=== PATIENT | female | born 1985 | race Caucasian/White ===

== ENCOUNTER 2021-03-30 14:24 | Emergency (ER) | payer MEDICAID, SELFPAY ==
[2021-03-30 15:10] VITALS: BP 132/81; PULSE 96; RESP 20; TEMP 36.3; O2SAT 98; BMI 32.5
--- NOTE | 2021-03-30 17:17 | PC.NURSE ---
Pt amb to [facility] with steasdy gaitt. C/o increased anxiety. In sherif. No SI/HI. MEDS prozac, prazosin, hydroxizine, gabapentin, methadone, VITAMIN B1, FLOVENT.
--- NOTE | 2021-03-30 17:35 | ED.ANXIETY ---
HPI - Anxiety General Chief Complaint: Anxiety Stated Complaint: anxiety - shaky Time Seen by Provider: 03/30/21 17:32 Source: patient Mode of arrival: ambulatory Limitations: no limitations History of Present Illness HPI narrative: Patient presents to ED for severe anxiety. Patient states she is on Prozac and Atarax and is not helping. Patient states her boyfriend last month and anxiety has been increased. Patient states she has been struggling to control anxiety for years and seen and no medication works. Patient denies any suicidal or homicidal ideation. Patient denies any auditory/visual hallucinations Related Data Allergies Allergy/AdvReac Type Severity Reaction Status Date / Time No Known Allergies Allergy Verified 03/30/21 19:54 Review of Systems Review of Systems: Yes all other systems are reviewed and are negative Constitutional: Constitutional: Reports as per HPI and Reports no additional constitutional complaints Eyes: Eyes: Reports as per HPI and Reports no additional eye complaints ENT: Reports system reviewed and no additional complaints, except as documented and Reports as per HPI Cardiovascular: Cardiovascular: Reports as per HPI and Reports painful fingertips Respiratory: Respiratory: Reports as per HPI and Reports no additional respiratory complaints Gastrointestinal: Gastrointestinal: Reports as per HPI and Reports no additional gastrointestinal complaints Genitourinary: Genitourinary: Reports no additional female genitourinary complaints and Reports as per HPI Musculoskeletal: Musculoskeletal: Reports no additional musculoskeletal complaints and Reports as per HPI Integumentary/Breasts: Skin/Breast: Reports system reviewed and no additional complaints, except as docu and Reports as per HPI Neurologic: Reports system reviewed and no additional complaints, except as documented and Reports as per HPI Psychiatric: Psychiatric: Reports no additional psychiatric complaints, Reports as per HPI and Reports anxiety [facility] Past Medical History Medical History (Updated 03/30/21 @ 20:07 by JV Anderson) Anemia Anxiety Asthma Gastritis SVT (supraventricular tachycardia) Surgical History (Updated 03/30/21 @ 15:14 by Virginia Renner) Hx of cholecystectomy Social History Social History Advance Directives: No Advance Directives Information Provided: No Physical Exam Vital Signs: Vital Signs: Last Vital Signs Temp 97.4 F 03/30/21 15:10 Pulse 96 03/30/21 15:10 Resp 20 03/30/21 15:10 BP 132/81 03/30/21 15:10 Pulse Ox 98 03/30/21 15:10 Body Mass Index 32.5 Const: General: cooperative, healthy appearing, comfortable, no acute distress, well developed, alert, awake and Physically active Orientation/consciousness: patient oriented x3 HENMT: Other: Patient appears anxious Head: Yes normal to inspection, Yes No palpable skull fracture present, Yes normocephalic and Yes atraumatic Eyes: General: appearance normal, both eyes and all related structures Neck: Neck: Yes normal visual inspection, Yes full ROM, Yes no lymphadenopathy, Yes no meningeal signs, Yes trachea midline, Yes supple and No tender Chest: Chest palpation & inspection: normal inspection of the chest and normal palpation of entire chest wall Resp: Effort & Inspection: normal respiratory effort and able to speak in complete sentences Auscultation: clear to auscultation bilaterally Cardio: Jugular venous distension: no JVD Heart sounds: S1 normal heart sound present and S2 normal heart sound present GI: Inspection: Yes normal to inspection and No abdominal wall ecchymosis Palpation (GI): Soft to palpation, not firm, nontender, no guarding and not rigid : General: No CVA tenderness and Yes no CVA tenderness Back/Spine/Pelvis: Back: no CVA tenderness, No CVA tenderness and No back tenderness Skin: General skin exam: no rashes or lesions noted and elasticity normal Neuro: General: patient oriented x3, gait normal, no meningeal signs and CN's II-XI intact bilaterally Cranial nerves: Yes CN's II-XII intact bilaterally Extrem: General: Yes normal to inspection and Yes full ROM Psych: Other: Anxiety Appearance: grossly normal, well kempt and not disheveled Course Course Course Narrative: No medical intervention needed. Patient is anxious. Not suspecting any cardiac or pulmonary etiology. Will contact care team to evaluate patient Reevaluation(s) Reevaluation #1: Patient evaluated by care team consulted Gayla who recommends patient received full evaluation by crisis and if they do not come she will complete evaluation of patient. Does states patient is really anxious. Time: 19:23 Reevaluation #2: Patient does not want to wait for evaluation by [facility] evaluation. Patient is not suicidal or homicidal. Patient states she has to be with her daughter who needs her help. Patient informed to return to the ED if anxiety worsens or have SI or homicidal ideation. Patient given contact information of [facility] so she could be evaluated in the community. Time: 20:04 Discharge Plan Discharge Clinical Impression: Acute anxiety Patient Disposition: Home, Self-Care Instructions: Anxiety (ED) Additional Instructions: Return to the ED for any suicidal/homicidal ideation, worsening anxiety, chest pain, shortness of breath, auditory/visual hallucinations, or any other concerning symptoms. [facility]errals[facility] - 2 days (Severe anxiety) Stand Alone Forms: Work/School Release Interventions: ED Discharge Assessment Last Done: 03/30/21 20:29 Discharge Date/Time: 03/30/21 20:30 Print Language: Ukrainian
--- NOTE | 2021-03-30 19:34 | MHC.RECOVSUP ---
? Reason for consult:Recovery Resources o?? Current location [facility]? o?? Identified substance use concern Alcohol/Cocaine ?? Support ? Intervention: o?? Community resources provided o?? Harm reduction discussion ? Plan: o?? Follow up tomorrow? o?? Patient awaiting crisis evaluation o?? Patient to follow up with [facility] after discharge ? Additional information: Spoke to Pt. about resources gave her info about [facility].Pt. is interested in having a [employer] Model[employer].Will put in the referral with outpatient at [facility]. ?
--- NOTE | 2021-03-30 20:08 | MHC.CARE ---
CARE team support requested by ED provider for pt who presented to ED endorsing worsening symptoms of anxiety marked by racing thoughts, restlessness, sleep disturbance with nightmares, and appetite disturbance. She denied SI/SIB/HI/AVH. She reported a history of one suicide attempt via medication overdose 9 months ago followed by a psychiatric admission. Denied other history of acute mental health treatment. She reported that she has had a difficult time over the past month, citing the of an ex boyfriend whom she had still been close to, managing medical problems, and transferring to different recovery treatment programs. She reported that every day feels like a constant anxiety attack and her medications haven't been helpful anymore. She relocated to [place] from [place] one year ago with the goal of getting into recovery from alcohol dependence. She has not yet been connected with outpatient behavioral health providers since moving to this area from [facility]. She is attending daily groups and weekly meetings and overall feels that she is doing well with her recovery thus far. She is on methadone through [facility] in [place] and is actively tapering down 2mg per week so she can stop taking it entirely. She was receptive to receiving a full crisis evaluation, however did not wish to wait in the ED for a clinician. She was given [facility] crisis information and discharged home.
--- NOTE | 2021-03-30 20:28 | PC.NURSE ---
PT WAS REEVALED BY PROVIDER. PT DOES NOT WANT TO WAIT FOR [facility] CONSULT. PT DENIES SI/HI.
== END 2021-03-30 20:30 | disposition home or self-care (01) ==
PROVIDERS: Emergency Provider Emergency Medicine; PCP Internal Medicine
DX: F41.9 Anxiety disorder, unspecified (principal); J45.909 Unspecified asthma, uncomplicated; Z79.899 Other long term (current) drug therapy
CPT/HCPCS: 99283

== ENCOUNTER 2021-04-28 08:50 | Emergency (ER) | payer MEDICAID, SELFPAY ==
[2021-04-28] VITALS (7 sets, daily range): BP systolic 116–132; BP diastolic 81–85; PULSE 97–129; RESP 18–21; TEMP 37.2–38.1; O2SAT 95–97; BMI 35.0
--- NOTE | 2021-04-28 | ECG_ITS ---
Test Reason : rapid HR Blood Pressure : / mmHG Vent. Rate : 120 BPM Atrial Rate : 120 BPM P-R Int : 126 ms QRS Dur : 078 ms QT Int : 320 ms P-R-T Axes : 028 063 -14 degrees QTc Int : [address] & T wave abnormality, consider anterior ischemia Abnormal ECG No previous ECGs available Referred By: Kingsley Beal Electronically Signed By:SEBASTIAN SANDERSON MD
--- NOTE | ~2021-04-28 | XR_ITS ---
EXAMINATION: XR CHEST CLINICAL INFORMATION: Cough COMPARISON: None TECHNIQUE: Frontal view of the chest was obtained. FINDINGS: There are low lung volumes. Mild elevation right diaphragm. The lungs are clear. The vascularity is normal. There is no airspace consolidation or groundglass opacity or effusion. The heart is normal in size and the hilar and mediastinal contours are normal. Bony structures are unremarkable. There are probable bilateral nipple piercings and a metallic clip from patient's gown overlying the chest. XR/XR chest 1V IMPRESSION: Unremarkable examination.
--- NOTE | ~2021-04-28 | CT_ITS ---
EXAMINATION: CT ANGIOGRAM OF THE CHEST WITH AND WITHOUT CONTRAST (CT PULMONARY ANGIOGRAM FOR PE) CLINICAL INFORMATION: Reason for Exam Short of breath, tachycardic, positive D-dimer COMPARISON: Chest x-ray from earlier the same day TECHNIQUE: Prior to contrast administration, noncontrast localization images were obtained. Subsequently, multidetector volumetric imaging was performed from the thoracic inlet to below the diaphragms following the administration of 65 mL Omnipaque 350 intravenous contrast. No contrast reaction reported Sagittal, coronal, and MIP oblique sagittal reformatted images were obtained on the CT workstation, uploaded to PACS, and reviewed. This CT examination was performed using dose optimization techniques as appropriate, variously including the following: *Automated exposure control *Adjustment of mA and/or kV according to patient size (this includes techniques or standardized protocols for targeted exams where dose is matched to indication/reason for exam; i.e. extremities or head) *Use of iterative reconstruction technique Total exam dose-length product 302 mGy-cm FINDINGS: QUALITY OF STUDY/CONTRAST BOLUS: Satisfactory. PULMONARY ARTERIES: There is no evidence of a large or central pulmonary embolism. Evaluation of smaller segmental and subsegmental pulmonary arteries is significantly limited due to motion artifact. THORACIC AORTA: No aneurysm or dissection. LUNG: Limited due to motion artifact. No focal consolidation, nodules or masses. PLEURA: No pleural effusion or pneumothorax. MEDIASTINUM: Normal heart size. No pericardial effusion. There is low-attenuation soft tissue is seen in the anterior superior mediastinum questionable for residual thymic tissue. No hilar or mediastinal lymphadenopathy. No evidence of septal bowing or right heart strain. There is an esophageal hernia and wall thickening of the distal thoracic esophagus. CHEST WALL/AXILLA: No axillary or internal mammary lymphadenopathy. OSSEOUS STRUCTURES: No acute or suspicious osseous abnormality. UPPER ABDOMEN: Unremarkable. No reflux of contrast into the hepatic veins to suggest elevated right heart pressures. CT/CT angio chest PE protocol IMPRESSION: Very limited exam due to respiratory motion artifact. No evidence of large or central pulmonary embolism. Evaluation of smaller segmental and subsegmental pulmonary arteries is significantly limited due to motion artifact. Esophageal hernia and wall thickening of the distal thoracic esophagus. Follow-up endoscopy or fluoroscopy exam should be considered if clinically indicated. Probable residual thymic tissue in the anterior superior mediastinum. VTE: negative
[2021-04-28] MEDS: Acetaminophen 325 MG TABLET 650 MG PO ×2 (09:20→16:51)
[2021-04-28 09:24] LABS: Appearance Urine HAZY; Color Urine YELLOW; Glucose Urine UA NEG (NEG); Leukocyte Esterase Urine NEG (NEG); Nitrite Urine NEG (NEG); Urine Blood NEG (NEG); Urine Ketones NEG (NEG); Urine Protein NEG (NEG-TRACE)
[2021-04-28 09:26] LABS: UPreg QC Valid YES; Urine Pregnancy NEGATIVE (NEGATIVE)
[2021-04-28 10:08] LABS: Influenza A PCR NEGATIVE (Negative); Influenza B PCR NEGATIVE (Negative); Resp Syncy Virus RNA Qual PCR NEGATIVE (Negative); SARS COV2 PCR INHOUSE NEGATIVE (Negative)
--- NOTE | 2021-04-28 10:19 | PC.NURSE ---
PT ALERTED THIS RN THAT SHE IS FEELING ANXIOUS AND FEELS LIKE SHE IS GOING INTO SVT. HR ON MONITOR IS 130. EKG ORDERED AND IV ESTABLISHED.
--- NOTE | 2021-04-28 10:35 | ED.GENADULT ---
HPI - General Adult General Chief complaint: General Medical Stated complaint: diff breathing, body ache, headache Time Seen by Provider: 04/28/21 10:15 History of Present Illness HPI narrative: Patient complains of 1 day of body aches, she did have some vomiting earlier but that has resolved, and feeling very short of breath as well as coughing She denies chest pain she denies leg swelling she has no significant headache no stiff neck Patient was discharged several weeks ago from [facility] where she was treated briefly with IV antibiotics for a question of sepsis without a known source Related Data Previous Rx's Medication Instructions Recorded acetaminophen 500 mg tablet 1,000 mg PO QID PRN #20 tab 04/28/21 ibuprofen 600 mg tablet 600 mg PO Q6H PRN #20 tab 04/28/21 lorazepam 0.5 mg tablet (Ativan) 0.5 mg PO TID PRN #7 tab 04/28/21 Allergies Allergy/AdvReac Type Severity Reaction Status Date / Time No Known Allergies Allergy Verified 03/30/21 19:54 Review of Systems Review of Systems: Negatives are no headache no neck pain no chest pain no abdominal pain no diarrhea on no leg swelling no leg pain no skin rash no numbness no weakness no confusion Yes all other systems are reviewed and are negative PMFSH Past Medical History Source: nursing notes reviewed Medical History (Updated 04/28/21 @ 17:29 by JV Esparza) Anemia Anxiety Asthma Gastritis SVT (supraventricular tachycardia) Surgical History (Updated 03/30/21 @ 15:14 by Virginia Renner) Hx of cholecystectomy Social History Social History Advance Directives: No Advance Directives Information Provided: No Patient : No Physical Exam Vital Signs: Vital Signs: Last Vital Signs Temp 98.9 F 04/28/21 16:45 Pulse 97 04/28/21 16:45 Resp 19 04/28/21 16:45 BP 116/85 04/28/21 12:08 Pulse Ox 97 04/28/21 16:45 Body Mass Index 35.0 Temp of a 100.6 degrees is noted as well as a pulse of 129, blood pressure was normal General appearance is no distress but very anxious appearing, no evidence of any respiratory distress The eyes no redness or discharge The nose no sinus tenderness The pharynx is clear and well hydrated The chest is clear to auscultation bilateral with symmetric equal breath sounds Heart no murmur Abdomen soft nontender Extremities full range of motion x4 Neuro no focal motor sensory deficit, gait and balance are normal, speech and interaction comprehension and expression are normal, pupils equal round reactive to light extraocular motions intact cranial nerves intact as tested Course Course Course Narrative: Patients tachycardia was noted and the patient stated she was very anxious and the tachycardia and anxious feeling were relieved after Ativan EKG showed sinus tachycardia with some ST and T-wave abnormalities this was compared with EKG done a few months ago from [facility] and was the same showing a T-wave inversion in V3 same as prior with no other significant changes D-dimer was 567 so CTA was done which was negative with no evidence of pneumonia or blood clot COVID testing was negative, lactic acid was normal, white count was 11 Sepsis considered unlikely as patient had very good response to Ativan with improvement in vital signs and her shortness of best resolved and was very comfortable At completion evaluation patient was comfortable tolerating p.o. ambulating easily and was discharged Medical Decision Making Lab Data Lab results reviewed: Yes I reviewed the patient's lab results. Result diagrams: 04/28/21 10:31 04/28/21 10:31 Labs: Lab Results 04/28/21 04/28/21 04/28/21 Range/Units 09:15 09:15 09:15 WBC (4.8-10.8) X10*3/uL RBC (4.20-5.50) X10*6/uL Hgb (12.0-16.0) g/dl Hct (37.0-47.0) % MCV (80.0-98.0) fL MCH (27.0-33.0) pg MCHC (31.0-35.0) g/dl RDW (11.0-16.0) % Plt Count (160-400) X10*3/uL MPV (9.4-12.3) fL Immature Gran % (Auto) (0.0-0.4) % Neut % (Auto) (45-73) % Lymph % (Auto) (20-40) % Sully % (Auto) (2-11) % Eos % (Auto) (0-4) % Baso % (Auto) (0-2) % Lymph # (Auto) (1.2-4.9) X10*3/uL Sully # (Auto) (0.1-1.2) X10*3/uL Eos # (Auto) (0.0-0.4) X10*3/uL Baso # (Auto) (0.0-0.2) X10*3/uL Abs Immat Gran (auto) (0.00-0.03) X10*3/uL Absolute Neuts (auto) (2.0-8.3) x10*3/uL Absolute Nucleated RBC (0.0-0.012) X10*3/uL Nucleated RBC % (auto) (0.0-0.2) /100WBC D-Dimer NG/ML Sodium (135-145) mmol/L Potassium (3.3-5.1) mmol/L Chloride (96-108) mmol/L Carbon Dioxide (22-29) mmol/L Anion Gap (12-20) BUN (9-16) mg/dL Creatinine (0.5-1.4) mg/dL Estim Creat Clear Calc Estimated GFR POC Glucose (60-115) mg/dL Random Glucose (60-115) mg/dL Lactic Acid (0.5-2.0) mmol/L Calcium (8.4-10.2) mg/dL Urine Color YELLOW Urine Appearance HAZY Urine pH 6.0 (5.0-8.0) Ur Specific [place] 1.020 (1.005-1.025) Urine Protein NEG (NEG-TRACE) MG/DL Urine Glucose (UA) NEG (NEG) MG/DL Urine Ketones NEG (NEG) MG/DL Urine Blood NEG (NEG) Urine Nitrite NEG (NEG) Ur Leukocyte Esterase NEG (NEG) Urine Test NEGATIVE (NEGATIVE) Influenza Type A (PCR) NEGATIVE (Negative) Influenza Type B (PCR) NEGATIVE (Negative) RSV RNA Qual (PCR) NEGATIVE (Negative) SARS-CoV-2 RNA (RT-PCR) NEGATIVE (Negative) 04/28/21 04/28/21 04/28/21 Range/Units 10:30 10:31 10:31 WBC 11.0 H (4.8-10.8) X10*3/uL RBC 4.64 (4.20-5.50) X10*6/uL Hgb 13.1 (12.0-16.0) g/dl Hct 39.1 (37.0-47.0) % MCV 84.3 (80.0-98.0) fL MCH 28.2 (27.0-33.0) pg MCHC 33.5 (31.0-35.0) g/dl RDW 12.1 (11.0-16.0) % Plt Count 175 (160-400) X10*3/uL MPV 8.8 L (9.4-12.3) fL Immature Gran % (Auto) 0.3 (0.0-0.4) % Neut % (Auto) 83.3 H (45-73) % Lymph % (Auto) 9.9 L (20-40) % Sully % (Auto) 5.8 (2-11) % Eos % (Auto) 0.6 (0-4) % Baso % (Auto) 0.1 (0-2) % Lymph # (Auto) 1.1 L (1.2-4.9) X10*3/uL Sully # (Auto) 0.6 (0.1-1.2) X10*3/uL Eos # (Auto) 0.1 (0.0-0.4) X10*3/uL Baso # (Auto) 0.0 (0.0-0.2) X10*3/uL Abs Immat Gran (auto) 0.03 (0.00-0.03) X10*3/uL Absolute Neuts (auto) 9.1 H (2.0-8.3) x10*3/uL Absolute Nucleated RBC 0.000 (0.0-0.012) X10*3/uL Nucleated RBC % (auto) 0.0 (0.0-0.2) /100WBC D-Dimer 574 NG/ML Sodium 137 (135-145) mmol/L Potassium 4.0 (3.3-5.1) mmol/L Chloride 104 (96-108) mmol/L Carbon Dioxide 25 (22-29) mmol/L Anion Gap 12 (12-20) BUN 12 (9-16) mg/dL Creatinine 0.92 (0.5-1.4) mg/dL Estim Creat Clear Calc 92.5 Estimated GFR > 60 POC Glucose (60-115) mg/dL Random Glucose 56 L* (60-115) mg/dL Lactic Acid (0.5-2.0) mmol/L Calcium 8.5 (8.4-10.2) mg/dL Urine Color Urine Appearance Urine pH (5.0-8.0) Ur Specific [place] (1.005-1.025) Urine Protein (NEG-TRACE) MG/DL Urine Glucose (UA) (NEG) MG/DL Urine Ketones (NEG) MG/DL Urine Blood (NEG) Urine Nitrite (NEG) Ur Leukocyte Esterase (NEG) Urine Test (NEGATIVE) Influenza Type A (PCR) (Negative) Influenza Type B (PCR) (Negative) RSV RNA Qual (PCR) (Negative) SARS-CoV-2 RNA (RT-PCR) (Negative) 04/28/21 04/28/21 Range/Units 11:12 11:23 WBC (4.8-10.8) X10*3/uL RBC (4.20-5.50) X10*6/uL Hgb (12.0-16.0) g/dl Hct (37.0-47.0) % MCV (80.0-98.0) fL MCH (27.0-33.0) pg MCHC (31.0-35.0) g/dl RDW (11.0-16.0) % Plt Count (160-400) X10*3/uL MPV (9.4-12.3) fL Immature Gran % (Auto) (0.0-0.4) % Neut % (Auto) (45-73) % Lymph % (Auto) (20-40) % Sully % (Auto) (2-11) % Eos % (Auto) (0-4) % Baso % (Auto) (0-2) % Lymph # (Auto) (1.2-4.9) X10*3/uL Sully # (Auto) (0.1-1.2) X10*3/uL Eos # (Auto) (0.0-0.4) X10*3/uL Baso # (Auto) (0.0-0.2) X10*3/uL Abs Immat Gran (auto) (0.00-0.03) X10*3/uL Absolute Neuts (auto) (2.0-8.3) x10*3/uL Absolute Nucleated RBC (0.0-0.012) X10*3/uL Nucleated RBC % (auto) (0.0-0.2) /100WBC D-Dimer NG/ML Sodium (135-145) mmol/L Potassium (3.3-5.1) mmol/L Chloride (96-108) mmol/L Carbon Dioxide (22-29) mmol/L Anion Gap (12-20) BUN (9-16) mg/dL Creatinine (0.5-1.4) mg/dL Estim Creat Clear Calc Estimated GFR POC Glucose 102 (60-115) mg/dL Random Glucose (60-115) mg/dL Lactic Acid 1.0 (0.5-2.0) mmol/L Calcium (8.4-10.2) mg/dL Urine Color Urine Appearance Urine pH (5.0-8.0) Ur Specific [place] (1.005-1.025) Urine Protein (NEG-TRACE) MG/DL Urine Glucose (UA) (NEG) MG/DL Urine Ketones (NEG) MG/DL Urine Blood (NEG) Urine Nitrite (NEG) Ur Leukocyte Esterase (NEG) Urine Test (NEGATIVE) Influenza Type A (PCR) (Negative) Influenza Type B (PCR) (Negative) RSV RNA Qual (PCR) (Negative) SARS-CoV-2 RNA (RT-PCR) (Negative) Discharge Plan Discharge Clinical Impression: Acute viral syndrome Patient Disposition: Home, Self-Care Additional Instructions: Our testing today did not reveal any dangerous condition A CT was done that did not show any blood clot did not show any pneumonia COVID testing was negative Blood work did not reveal any dangerous abnormality Follow with primary doctor Return to the ER any time any worse condition or any concerns Prescriptions: New lorazepam [Ativan] 0.5 mg tablet 0.5 mg PO TID PRN (Reason: anxiety) Qty: 7 RF: 0 ibuprofen 600 mg tablet 600 mg PO Q6H PRN (Reason: fever or pain) Qty: 20 RF: 0 acetaminophen 500 mg tablet 1,000 mg PO QID PRN (Reason: fever or pain) Qty: 20 RF: 0
[2021-04-28 10:37] LABS: MANUAL DIFF FLAG NO
[2021-04-28 10:38] LABS: Basophils Percent Auto 0.1 % (0-2); Eosinophils Absolute Auto 0.1 X10*3/uL (0.0-0.4); Eosinophils Percent Auto 0.6 % (0-4); Hematocrit 39.1 % (37.0-47.0); Hemoglobin 13.1 g/dl (12.0-16.0); Imm Gran Abs Auto 0.03 X10*3/uL (0.00-0.03); Imm Gran Pct Auto 0.3 % (0.0-0.4); Lymphocytes Absolute Auto 1.1 X10*3/uL (1.2-4.9); Lymphocytes Percent Auto 9.9 % (20-40); Mean Corpuscular HGB Conc 33.5 g/dl (31.0-35.0); Mean Corpuscular Hemoglobin 28.2 pg (27.0-33.0); Mean Corpuscular Volume 84.3 fL (80.0-98.0); Mean Platelet Volume 8.8 fL (9.4-12.3); Monocytes Absolute Auto 0.6 X10*3/uL (0.1-1.2); Monocytes Percent Auto 5.8 % (2-11); Neutrophils Absolute Auto 9.1 x10*3/uL (2.0-8.3); Neutrophils Percent Auto 83.3 % (45-73); Platelet Count 175 X10*3/uL (160-400); Red Blood Count 4.64 X10*6/uL (4.20-5.50); Red Cell Distribution Width 12.1 % (11.0-16.0)
[2021-04-28] MEDS: LORazepam 1 MG TABLET PO (10:58)
[2021-04-28 11:01] LABS: D Dimer 574 NG/ML
[2021-04-28 11:08] LABS: Anion Gap 12 (12-20); Blood Urea Nitrogen 12 mg/dL (9-16); Calcium 8.5 mg/dL (8.4-10.2); Carbon Dioxide 25 mmol/L (22-29); Chloride 104 mmol/L (96-108); Creatinine Clr Calc Pharmacy 92.5; Estimated Glomerular Filt Rate > 60; Glucose Random 56 mg/dL (60-115); Sodium 137 mmol/L (135-145)
--- NOTE | 2021-04-28 11:12 | PC.NURSE ---
PT GIVEN 2 GRAPE JUICE AND PUDDING. BLOOD GLUCOSE 56 PER LAB. PT A+OX4, NO LETHARGY, SPEAKING CLEARLY IN FULL SENTENCES. JV SORENSON AWARE.
[2021-04-28 11:27] LABS: Glucose, Whole Blood 102 mg/dL (60-115)
--- NOTE | 2021-04-28 11:55 | PC.NURSE ---
PT MOVED TO ROOM [facility] AND PLACED ON INSPECTOR SHELLS. PT DENIES ANY CHEST PAIN, NO SOB, NO CYANOSIS, NO DIAPHORESIS. STEADY GAIT TO BATHROOM AND BACK, LESS ANXIOUS.
[2021-04-28] MEDS: iohexoL 350 MG/ML 100 ML INFUS..BTL IV (13:14)
--- NOTE | 2021-04-28 14:06 | PC.NURSE ---
PT SLEEPING, RESP UNLABORED, NAD.
[2021-04-28] MEDS: 0.9 % Sodium Chloride 1,000 ML 999 ML IVCONT (14:22)
[2021-04-28] MEDS: Ketorolac Tromethamine 15 MG/ML VIAL 30 MG IVPUSH (16:51)
== END 2021-04-28 17:53 | disposition home or self-care (01) ==
PROVIDERS: Physician Assistant Medical; Emergency Provider Emergency Medicine; PCP Internal Medicine
DX: B34.9 Viral infection, unspecified (principal); M79.10 Myalgia, unspecified site; R06.02 Shortness of breath; R50.9 Fever, unspecified; R00.0 Tachycardia, unspecified; Z20.822 Contact with and (suspected) exposure to COVID-19
CPT/HCPCS: 0241U; 36415; 71045; 71275; 80048; 81003; 81025; 82947; 83605; 85025; 85379; 87040; 93005; 96361; 96374; 99284; J1885; Q9967

== ENCOUNTER 2021-05-05 15:59 | Emergency (ER) | payer MEDICAID, SELFPAY ==
--- NOTE | ~2021-05-05 | XR_ITS ---
EXAMINATION: XR CHEST CLINICAL INFORMATION: Chest pain COMPARISON: Previous chest x-ray and chest CTA 04/28/2021 TECHNIQUE: Frontal view of the chest was obtained. FINDINGS: The cardiac and mediastinal contours are stable. The lungs are clear. There is no pleural effusion or pneumothorax. Bony structures are unremarkable. There is a radiopaque density that projects over the mediastinum/ken measuring 3 mm. This is similar to previous chest x-ray 04/28/2021. No corresponding abnormality is seen on chest CT done the same day and presumably this represents something on the patient's skin or clothing. XR/XR chest 1V IMPRESSION: No evidence for acute disease in the chest.
[2021-05-05 16:03] VITALS: BP 126/46; PULSE 80; RESP 18; TEMP 36; O2SAT 98; BMI 33.6
--- NOTE | 2021-05-05 16:05 | ECG_ITS ---
Test Reason : dyspnea Blood Pressure : / mmHG Vent. Rate : 069 BPM Atrial Rate : 069 BPM P-R Int : 126 ms QRS Dur : 082 ms QT Int : 396 ms P-R-T Axes : 023 020 -10 degrees QTc Int : 424 ms Normal sinus rhythm Nonspecific T wave abnormality Inferior leads Lateral leads Abnormal ECG When compared with ECG of 28-APR-2021 10:19, Vent. rate has decreased BY [address] less depressed in Anterior leads Referred By: Generic ED Physician Electronically Signed By:SEBASTIAN SANDERSON MD
[2021-05-05 17:54] LABS: MANUAL DIFF FLAG NO
[2021-05-05 17:57] LABS: Basophils Percent Auto 0.1 % (0-2); Eosinophils Absolute Auto 0.2 X10*3/uL (0.0-0.4); Eosinophils Percent Auto 2.2 % (0-4); Hematocrit 40.3 % (37.0-47.0); Hemoglobin 13.8 g/dl (12.0-16.0); Imm Gran Abs Auto 0.04 X10*3/uL (0.00-0.03); Imm Gran Pct Auto 0.5 % (0.0-0.4); Lymphocytes Absolute Auto 4.1 X10*3/uL (1.2-4.9); Lymphocytes Percent Auto 50.4 % (20-40); Mean Corpuscular HGB Conc 34.2 g/dl (31.0-35.0); Mean Corpuscular Hemoglobin 28.5 pg (27.0-33.0); Mean Corpuscular Volume 83.1 fL (80.0-98.0); Mean Platelet Volume 8.1 fL (9.4-12.3); Monocytes Absolute Auto 0.4 X10*3/uL (0.1-1.2); Monocytes Percent Auto 4.3 % (2-11); Neutrophils Absolute Auto 3.5 x10*3/uL (2.0-8.3); Neutrophils Percent Auto 42.5 % (45-73); Platelet Count 292 X10*3/uL (160-400); Red Blood Count 4.85 X10*6/uL (4.20-5.50); Red Cell Distribution Width 12.1 % (11.0-16.0); White Blood Count 8.1 X10*3/uL (4.8-10.8)
[2021-05-05 18:11] LABS: Anion Gap 11 (12-20); Blood Urea Nitrogen 8 mg/dL (9-16); Calcium 8.9 mg/dL (8.4-10.2); Carbon Dioxide 29 mmol/L (22-29); Chloride 102 mmol/L (96-108); Creatinine Clr Calc Pharmacy 85.8; Estimated Glomerular Filt Rate > 60; Glucose Random 112 mg/dL (60-115); Potassium 3.9 mmol/L (3.3-5.1); Sodium 138 mmol/L (135-145)
[2021-05-05 18:17] LABS: Troponin-I High Sensitivity < 3.5 ng/L (<3.5-17.0)
--- NOTE | 2021-05-05 19:12 | ED_ITS ---
HPI - Chest Pain General Chief Complaint: Chest Pain Stated Complaint: diff breathing back pain Time Seen by Provider: 05/05/21 18:54 Source: patient Mode of arrival: ambulatory Limitations: no limitations History of Present Illness HPI narrative: 35 yo presented with chest pain for weeks w/o radiation,no diaphoresis complaint: chest pain Onset (ago): week(s) Timing of current episode: daily Onset: during rest Pain location: substernal Pain radiation: none Severity: mild Quality: aching Exacerbating factors: nothing Associated symptoms: nausea Risk Factors Coronary artery disease risk factors: diabetes and smoking history Related Data Previous Rx's Medication Instructions Recorded acetaminophen 500 mg tablet 1,000 mg PO QID PRN #20 tab 04/28/21 ibuprofen 600 mg tablet 600 mg PO Q6H PRN #20 tab 04/28/21 ibuprofen 600 mg tablet 600 mg PO Q6H PRN #20 tab 04/28/21 lorazepam 0.5 mg tablet (Ativan) 0.5 mg PO TID PRN #7 tab 04/28/21 lorazepam 0.5 mg tablet (Ativan) 0.5 mg PO TID PRN #7 tab 04/28/21 Allergies Allergy/AdvReac Type Severity Reaction Status Date / Time No Known Allergies Allergy Verified 03/30/21 19:54 Review of Systems Review of Systems: Yes all other systems are reviewed and are negative Constitutional: Constitutional: Denies fever(s) Cardiovascular: Cardiovascular: Denies syncope, Denies leg edema, Denies dyspnea and Denies dyspnea on exertion Respiratory: Respiratory: Denies pain on inspiration, Denies dyspnea and Denies dyspnea on exertion Neurologic: Denies syncope Psychiatric: Psychiatric: Reports anxiety, Reports difficulty concentrating and Reports panic attacks PMF Past Medical History Attestation statement: The following information was validated with the patient. Medical History Anemia Anxiety Asthma Gastritis SVT (supraventricular tachycardia) Surgical History Hx of cholecystectomy Social History Social History Advance Directives: No Advance Directives Information Provided: Yes Physical Exam Vital Signs: Vital Signs: Last Vital Signs Temp 96.8 F 05/05/21 16:03 Pulse 80 05/05/21 16:03 Resp 18 05/05/21 16:03 BP 126/46 L 05/05/21 16:03 Pulse Ox 98 05/05/21 16:03 Body Mass Index 33.6 Const: General: cooperative, no acute distress, well developed and alert Nutritional Appearance: well nourished HENMT: Head: Yes normal to inspection Face and sinus: Yes normal facial exam Mouth: Normal oral and palatal mucosa present Neck: Neck: Yes normal visual inspection and Yes full ROM Chest: Chest palpation & inspection: normal inspection of the chest Resp: Effort & Inspection: normal respiratory effort Auscultation: clear to auscultation bilaterally Cardio: Jugular venous distension: no JVD Rate: regular rate Rhythm: regular rhythm GI: Inspection: Yes normal to inspection Palpation (GI): Soft to palpation, nontender and no guarding Skin: General skin exam: no rashes or lesions noted Rashes: no rashes Course Reevaluation(s) Reevaluation #1: pt tropi/ekg/cxr wnl, I performed a bed side point of care US no pericardial effusion,good wall motion. Unlikely PE no tachycardia,Sat 98%,no dyspnea OK to d/c home MDM - Chest Pain Medical Records Data Attestation: I reviewed the patient's medical records. Lab Data Attestation: I reviewed the patient's lab results. Result diagrams: 05/05/21 17:46 05/05/21 17:46 Labs: Lab Results 05/05/21 05/05/21 05/05/21 Range/Units 17:46 17:46 17:46 WBC 8.1 (4.8-10.8) X10*3/uL RBC 4.85 (4.20-5.50) X10*6/uL Hgb 13.8 (12.0-16.0) g/dl Hct 40.3 (37.0-47.0) % MCV 83.1 (80.0-98.0) fL MCH 28.5 (27.0-33.0) pg MCHC 34.2 (31.0-35.0) g/dl RDW 12.1 (11.0-16.0) % Plt Count 292 D (160-400) X10*3/uL MPV 8.1 L (9.4-12.3) fL Immature Gran % (Auto) 0.5 H (0.0-0.4) % Neut % (Auto) 42.5 L (45-73) % Lymph % (Auto) 50.4 H (20-40) % [place] % (Auto) 4.3 (2-11) % Eos % (Auto) 2.2 (0-4) % Baso % (Auto) 0.1 (0-2) % Lymph # (Auto) 4.1 (1.2-4.9) X10*3/uL [place] # (Auto) 0.4 (0.1-1.2) X10*3/uL Eos # (Auto) 0.2 (0.0-0.4) X10*3/uL Baso # (Auto) 0.0 (0.0-0.2) X10*3/uL Abs Immat Gran (auto) 0.04 H (0.00-0.03) X10*3/uL Absolute Neuts (auto) 3.5 (2.0-8.3) x10*3/uL Absolute Nucleated RBC 0.000 (0.0-0.012) X10*3/uL Nucleated RBC % (auto) 0.0 (0.0-0.2) /100WBC Sodium 138 (135-145) mmol/L Potassium 3.9 (3.3-5.1) mmol/L Chloride 102 (96-108) mmol/L Carbon Dioxide 29 (22-29) mmol/L Anion Gap 11 L (12-20) BUN 8 L (9-16) mg/dL Creatinine 0.97 (0.5-1.4) mg/dL Estim Creat Clear Calc 85.8 Estimated GFR > 60 POC Glucose (60-115) mg/dL Random Glucose 112 (60-115) mg/dL Calcium 8.9 (8.4-10.2) mg/dL Troponin I High Sens < 3.5 (<3.5-17.0) ng/L 05/05/21 Range/Units 19:51 WBC (4.8-10.8) X10*3/uL RBC (4.20-5.50) X10*6/uL Hgb (12.0-16.0) g/dl Hct (37.0-47.0) % MCV (80.0-98.0) fL MCH (27.0-33.0) pg MCHC (31.0-35.0) g/dl RDW (11.0-16.0) % Plt Count (160-400) X10*3/uL MPV (9.4-12.3) fL Immature Gran % (Auto) (0.0-0.4) % Neut % (Auto) (45-73) % Lymph % (Auto) (20-40) % [place] % (Auto) (2-11) % Eos % (Auto) (0-4) % Baso % (Auto) (0-2) % Lymph # (Auto) (1.2-4.9) X10*3/uL [place] # (Auto) (0.1-1.2) X10*3/uL Eos # (Auto) (0.0-0.4) X10*3/uL Baso # (Auto) (0.0-0.2) X10*3/uL Abs Immat Gran (auto) (0.00-0.03) X10*3/uL Absolute Neuts (auto) (2.0-8.3) x10*3/uL Absolute Nucleated RBC (0.0-0.012) X10*3/uL Nucleated RBC % (auto) (0.0-0.2) /100WBC Sodium (135-145) mmol/L Potassium (3.3-5.1) mmol/L Chloride (96-108) mmol/L Carbon Dioxide (22-29) mmol/L Anion Gap (12-20) BUN (9-16) mg/dL Creatinine (0.5-1.4) mg/dL Estim Creat Clear Calc Estimated GFR POC Glucose 79 (60-115) mg/dL Random Glucose (60-115) mg/dL Calcium (8.4-10.2) mg/dL Troponin I High Sens (<3.5-17.0) ng/L Imaging Data Chest x-ray: Radiologist's impression: Normal CXR ECG Data ECG #1: ECG interpretation date: 05/05/21 ECG interpretation time: 19:16 Pacemaker model: NSR 69,normal ekg Discharge Plan Discharge Clinical Impression: Chest pain Patient Disposition: Home, Self-Care Instructions: Chest Pain (ED) Prescriptions: No Action lorazepam [Ativan] 0.5 mg tablet 0.5 mg PO TID PRN (Reason: anxiety) Qty: 7 RF: 0 ibuprofen 600 mg tablet 600 mg PO Q6H PRN (Reason: fever or pain) Qty: 20 RF: 0 acetaminophen 500 mg tablet 1,000 mg PO QID PRN (Reason: fever or pain) Qty: 20 RF: 0 lorazepam [Ativan] 0.5 mg tablet 0.5 mg PO TID PRN (Reason: anxiety) Qty: 7 RF: 0 ibuprofen 600 mg tablet 600 mg PO Q6H PRN (Reason: pain) Qty: 20 RF: 0 Referrals: Ortega Padron DO, MD [Primary Care Provider] - 2 days Discharge Date/Time: 05/05/21 21:46
[2021-05-05] MEDS: LORazepam 1 MG TABLET PO (19:38)
[2021-05-05 19:54] LABS: Glucose, Whole Blood 79 mg/dL (60-115)
--- NOTE | 2021-05-05 20:20 | PC.NURSE ---
The pt is resting in hallway recliner awaiting eval from crisis team/[facility]. She denies SI/HI, howveer admits to increased anxiety and states I feel like I have to keep coming to the ER every day for this and I dont want to have to do that. I need mroe help. She makes eye contact with RN, appears anxious, is cooperative. She denies chest pain, denies SOb. Will continue to monitor.
--- NOTE | 2021-05-05 21:26 | MHC.CARE ---
CARE team met with pt regarding consult and anxiety sx's. Pt states she struggles with frequent panic attacks and debilitating anxiety. She denies SI/HI is help seeking and states she needs something more . Pt shares that she is in a [facility] residential program and has been doing fairly well with her recovery but is now focusing on her anxiety. pt states she lost her therapist and does not have a psychiatrist. pt reports her sleep and appetite are poor due to anxiety. Pt states she feels safe returning to her program and comes here when she is unable to manage her anxiety. Pt is receptive to a [facility] referral. Pt's phone number is [phone]
== END 2021-05-05 21:46 | disposition home or self-care (01) ==
PROVIDERS: Emergency Provider Emergency Medicine; PCP Internal Medicine
DX: R07.9 Chest pain, unspecified (principal); Z87.891 Personal history of nicotine dependence; Z79.899 Other long term (current) drug therapy
CPT/HCPCS: 36415; 71045; 80048; 82947; 84484; 85025; 93005; 99284

== ENCOUNTER 2021-06-07 15:22 | Emergency (ER) | payer OTHER, SELFPAY ==
--- NOTE | 2021-06-07 15:58 | ECG_ITS ---
Test Reason : CHEST PAIN Blood Pressure : / mmHG Vent. Rate : 060 BPM Atrial Rate : 060 BPM P-R Int : 134 ms QRS Dur : 088 ms QT Int : 436 ms P-R-T Axes : 025 027 -03 degrees QTc Int : 436 ms Sinus rhythm with sinus arrhythmia with occasional Premature ventricular complexes Otherwise normal ECG When compared with ECG of 05-MAY-2021 16:13, Premature ventricular complexes are now Present Referred By: Generic ED Physician Electronically Signed By:HORACIO JOSEPH
[2021-06-07 16:25] VITALS: BP 121/52; PULSE 59; RESP 18; TEMP 36.1; O2SAT 99; BMI 33.6
[2021-06-07 17:04] LABS: Basophils Percent Auto 0.2 % (0-2); Eosinophils Absolute Auto 0.2 X10*3/uL (0.0-0.4); Eosinophils Percent Auto 1.4 % (0-4); Hematocrit 37.4 % (37.0-47.0); Hemoglobin 12.4 g/dl (12.0-16.0); Imm Gran Abs Auto 0.04 X10*3/uL (0.00-0.03); Imm Gran Pct Auto 0.3 % (0.0-0.4); Lymphocytes Absolute Auto 3.6 X10*3/uL (1.2-4.9); MANUAL DIFF FLAG NO; Mean Corpuscular HGB Conc 33.2 g/dl (31.0-35.0); Mean Corpuscular Hemoglobin 28.2 pg (27.0-33.0); Mean Corpuscular Volume 85.2 fL (80.0-98.0); Mean Platelet Volume 8.6 fL (9.4-12.3); Monocytes Absolute Auto 0.8 X10*3/uL (0.1-1.2); Monocytes Percent Auto 6.2 % (2-11); Neutrophils Absolute Auto 8.2 x10*3/uL (2.0-8.3); Neutrophils Percent Auto 63.9 % (45-73); Platelet Count 261 X10*3/uL (160-400); Red Blood Count 4.39 X10*6/uL (4.20-5.50); Red Cell Distribution Width 12.7 % (11.0-16.0); White Blood Count 12.8 X10*3/uL (4.8-10.8)
[2021-06-07 17:23] LABS: Alanine Aminotransferase 55 U/L (0-31); Albumin Level 3.8 g/dL (3.5-5.0); Alkaline Phosphatase 142 U/L (39-117); Anion Gap 11 (12-20); Aspartate Amino Transferase 30 U/L (5-31); Bilirubin Direct 0.2 mg/dL (0.0-0.5); Bilirubin Total 0.4 mg/dL (0.0-1.0); Blood Urea Nitrogen 8 mg/dL (9-16); Carbon Dioxide 28 mmol/L (22-29); Chloride 103 mmol/L (96-108); Creatinine Clr Calc Pharmacy 95.6; Estimated Glomerular Filt Rate > 60; Glucose Random 96 mg/dL (60-115); Lipase 34 U/L (8-78); Potassium 4.2 mmol/L (3.3-5.1); Sodium 138 mmol/L (135-145); Total Protein 7.1 g/dL (6.5-8.0)
[2021-06-07 17:37] LABS: Appearance Urine CLEAR; Color Urine YELLOW; Glucose Urine UA NEG (NEG); Leukocyte Esterase Urine NEG (NEG); Nitrite Urine NEG (NEG); Urine Blood NEG (NEG); Urine Ketones NEG (NEG); Urine Protein NEG (NEG-TRACE)
[2021-06-07 17:40] LABS: UPreg QC Valid YES; Urine Pregnancy NEGATIVE (NEGATIVE)
== END 2021-06-07 23:37 | disposition left against medical advice (07) ==
PROVIDERS: Emergency Provider Emergency Medicine
DX: R10.30 Lower abdominal pain, unspecified (principal); R11.2 Nausea with vomiting, unspecified
CPT/HCPCS: 36415; 80048; 80076; 81003; 81025; 83690; 85025; 93005; 99283

== ENCOUNTER 2021-07-24 10:33 | Emergency (ER) | payer OTHER, SELFPAY ==
--- NOTE | 2021-07-24 | ECG_ITS ---
Test Reason : chest pain/sob Blood Pressure : / mmHG Vent. Rate : 073 BPM Atrial Rate : 073 BPM P-R Int : 130 ms QRS Dur : 082 ms QT Int : 378 ms P-R-T Axes : 029 052 -06 degrees QTc Int : 416 ms Normal sinus rhythm with sinus arrhythmia Normal ECG When compared with ECG of 07-JUN-2021 16:10, Premature ventricular complexes are no longer Present Referred By: Generic ED Physician Electronically Signed By:HORACIO JOSEPH
--- NOTE | ~2021-07-24 | XR_ITS ---
EXAMINATION: XR CHEST CLINICAL INFORMATION: Cough. Chest pain. COMPARISON: Chest x-ray 05/05/2021 TECHNIQUE: Frontal view of the chest was obtained. FINDINGS: Cardiac silhouette is normal in size. The lungs are adequately aerated. Mild asymmetric elevation of right hemidiaphragm is again noted. There is no lobar consolidation. No pleural effusion or pneumothorax. XR/XR chest 1V IMPRESSION: No acute pulmonary pathology.
[2021-07-24 10:36] VITALS: BP 140/92; PULSE 94; O2SAT 100
--- NOTE | 2021-07-24 10:58 | PC.NURSE ---
Triage delay due to pt being in bathroom. pt is still on premises.
[2021-07-24 11:07] VITALS: BP 131/86; PULSE 94; RESP 18; TEMP 36.7; O2SAT 100; BMI 33.6
--- NOTE | 2021-07-24 12:38 | ED_ITS ---
HPI - URI/Sore Throat General Chief Complaint: Upper Respiratory Symptoms Stated Complaint: +COVID X'S 5 DAYS , COVID SYMPOTMS PER EMS Time Seen by Provider: 07/24/21 11:38 History of Present Illness HPI Narrative: Patient complains of mild shortness of breath, pain with a deep breath coughing and anxiety, she is worried could she was recently diagnosed with COVID She is vaccinated The chest pain is only with a deep breath, there is no exertional component no diaphoresis no vomiting no fainting The shortness of breath is described as unable to take a full deep breath, but no shortness of breath when she is breathing normally Related Data Previous Rx's Medication Instructions Recorded acetaminophen 500 mg tablet 1,000 mg PO QID PRN #20 tab 04/28/21 ibuprofen 600 mg tablet 600 mg PO Q6H PRN #20 tab 04/28/21 ibuprofen 600 mg tablet 600 mg PO Q6H PRN #20 tab 04/28/21 lorazepam 0.5 mg tablet (Ativan) 0.5 mg PO TID PRN #7 tab 04/28/21 lorazepam 0.5 mg tablet (Ativan) 0.5 mg PO TID PRN #7 tab 04/28/21 lorazepam 0.5 mg tablet (Ativan) 0.5 mg PO TID PRN #14 tab 07/24/21 Allergies Allergy/AdvReac Type Severity Reaction Status Date / Time haloperidol [From Haldol] Allergy Agitated Verified 06/07/21 16:29 metoclopramide [From Allergy Agitated Verified 06/07/21 16:29 Reglan] Review of Systems Verdana 4l Review of Systems: Verdana 4d Verdana 4d Positive pleuritic chest pain, anxiety, cough, shortness of breath Negatives are no fever no chills no dizziness no fainting no feeling faint no headache no stiff neck no difficulty swallowing no exertional chest pain no diaphoresis no palpitationspalpitations no abdominal pain no nausea or vomiting no calf pain no leg pain no leg or calf swelling Yes all other systems are reviewed and are negative [facility] Past Medical History Source: nursing notes reviewed Medical History Anemia Anxiety Asthma Gastritis SVT (supraventricular tachycardia) Surgical History Hx of cholecystectomy Social History Social History Advance Directives: No Advance Directives Information Provided: No Patient : No (Celibate) Physical Exam Verdana 4l Vital Signs: Verdana 4d Verdana 4d Vital Signs: Verdana 4d Verdana 4Bd Last Vital Signs Verdana 4d Partition Notcher New 4d Partition Notcher New 4d Temp 98.0 F 07/24/21 11:07 Partition Notcher New 4d Pulse 94 07/24/21 11:07 Partition Notcher New 4d Resp 18 07/24/21 11:07 BP 131/86 07/24/21 11:07 Pulse Ox 100 07/24/21 11:07 BMI result Body Mass Index 33.6 General appearance is no acute distress but anxious appearing The head is normocephalic atraumatic The pharynx is moist and well hydrated The neck is supple The chest is clear with full symmetric equal breath sounds no adventitious sounds Heart no murmur The abdomen soft nontender Extremities no edema, no calf tenderness or swelling Neuro is no focal motor or sensory deficit, gait and balance are normal, interaction both expression and comprehension are normal Course Course Course Narrative: Patient's vital signs were normal including and O2 sat 100% and a respiratory rate of 16 She had no shortness of breath during our conversation but did have pain with a deep breath Her PERC score was 0 her wells score was 0 Chest x-ray did not show any infiltrate no abnormalities EKG showed normal sinus rhythm rate of 73 without acute ischemic changes no ST changes Patient admitted to being very anxious and was advised that her symptoms were likely a combination of COVID with some coughing and pain with a deep breath as well as her anxiety contributes She was well-appearing in no distress and was discharged Discharge Plan Discharge Clinical Impression: COVID-19, Anxiety Patient Disposition: Home, Self-Care Additional Instructions: At this time there is no sign of any dangerous or life-threatening condition EKG did not show any sign of heart attack or dangerous arrhythmia Your vital signs were normal with an oxygen level of 100%, your lung exam was normal with normal breath sounds Chest x-ray was normal and the formula for blood clot was normal Most likely her symptoms are a combination of COVID which can make it hurt to take a deep breath and anxiety Try the breathing exercises I showed you on the You tube video You will find it under COVID breathing exercises For anxiety you can use Ativan 0.5 mg tablets if needed you can take 2 of them for a total of 1 mg Return to the ER any time any worse condition or any concerns Prescriptions: New lorazepam [Ativan] 0.5 mg tablet 0.5 mg PO TID PRN (Reason: anxiety) Qty: 14 0RF Rx Instructions: This medication may cause drowsiness no driving for 6 hours after taking No Action lorazepam [Ativan] 0.5 mg tablet 0.5 mg PO TID PRN (Reason: anxiety) Qty: 7 0RF Rx Instructions: This medication may cause drowsiness use with caution, no driving for 6 hours after taking ibuprofen 600 mg tablet 600 mg PO Q6H PRN (Reason: fever or pain) Qty: 20 0RF acetaminophen 500 mg tablet 1,000 mg PO QID PRN (Reason: fever or pain) Qty: 20 0RF lorazepam [Ativan] 0.5 mg tablet 0.5 mg PO TID PRN (Reason: anxiety) Qty: 7 0RF ibuprofen 600 mg tablet 600 mg PO Q6H PRN (Reason: pain) Qty: 20 0RF Interventions: ED Discharge Assessment Last Done: 07/24/21 13:09 Discharge Date/Time: 07/24/21 13:12
[2021-07-24] MEDS: LORazepam 0.5 MG TABLET PO (13:04)
== END 2021-07-24 13:12 | disposition home or self-care (01) ==
PROVIDERS: Emergency Provider Emergency Medicine
DX: U07.1 COVID-19 (principal); F41.9 Anxiety disorder, unspecified; R06.02 Shortness of breath
CPT/HCPCS: 71045; 93005; 99283

== ENCOUNTER 2021-07-31 21:14 | Emergency (ER) | payer OTHER, SELFPAY ==
--- NOTE | ~2021-07-31 | CT_ITS ---
EXAMINATION: CT ANGIOGRAM OF THE CHEST WITH AND WITHOUT CONTRAST (CT PULMONARY ANGIOGRAM FOR PE) CLINICAL INFORMATION: Reason for Exam chest pain tachycardia rule out PE COMPARISON: 04/28/2021 TECHNIQUE: Prior to contrast administration, noncontrast localization images were obtained. Subsequently, multidetector volumetric imaging was performed from the thoracic inlet to below the diaphragms following the administration of 80 mL Omnipaque 350 intravenous contrast. No contrast reaction reported Sagittal, coronal, and MIP oblique sagittal reformatted images were obtained on the CT workstation, uploaded to PACS, and reviewed. This CT examination was performed using dose optimization techniques as appropriate, variously including the following: *Automated exposure control *Adjustment of mA and/or kV according to patient size (this includes techniques or standardized protocols for targeted exams where dose is matched to indication/reason for exam; i.e. extremities or head) *Use of iterative reconstruction technique Total exam dose-length product 349 mGy-cm FINDINGS: QUALITY OF STUDY/CONTRAST BOLUS: Satisfactory. PULMONARY ARTERIES: No central or segmental pulmonary emboli. THORACIC AORTA: No aneurysm or dissection. LUNG: No dense regions of consolidation bilaterally. There is suggestion of subtle tree-in-bud type nodularity in the lingula, though this is suboptimally assessed due to motion artifact. PLEURA: No pleural effusion or pneumothorax. MEDIASTINUM: Visualized thyroid gland appears unremarkable. There are subcentimeter mediastinal lymph nodes within the range of normal variation. Cardiac size is within normal limits; no pericardial effusion. Small hiatal hernia is suspected. No evidence of septal bowing or right heart strain. CHEST WALL/AXILLA: No axillary or internal mammary lymphadenopathy. OSSEOUS STRUCTURES: No acute or suspicious osseous abnormality. UPPER ABDOMEN: Unremarkable. No reflux of contrast into the hepatic veins to suggest elevated right heart pressures. CT/CT angio chest PE protocol IMPRESSION: 1. No pulmonary embolus identified. 2. Suboptimal assessment of the lungs due to respiratory motion artifact. Suggestion of mild tree in bud type opacity in the lingula, suggesting an infectious/inflammatory bronchiolitis. VTE: negative
--- NOTE | 2021-07-31 21:19 | ED.CHESTPAIN ---
HPI - Chest Pain General Chief Complaint: Chest Pain Stated Complaint: CP Time Seen by Provider: 07/31/21 21:18 Source: patient and old records reviewed Mode of arrival: EMS Limitations: no limitations History of Present Illness HPI narrative: 36 yo female with hx of SVT used to be on toprol xl 25mg daily for a few years but took herself off due to ETOH abuse has not seen cardiology since, COVID 19 2/2 just had negative test not on OCPs but since COVID has had chest tightness, anxiety, increased HR. Today chest pain all day very tight, felt her HR high and felt dizzy and weak almost like she was going to pass out. Given ASA and nitro by EMS. MD complaint: chest pain Pertinent past history: other (SVT) Onset (ago): day(s) (2/ but much worse today) Timing of current episode: episodic Prior episodes: Yes Onset: during rest and during exertion Pain location: substernal Pain radiation: none Severity: moderate Quality: tightness Relieving factors: nothing Exacerbating factors: exertion and movement Context: recent illness (COVID + 2/2) Associated symptoms: nausea and dyspnea Treatment prior to arrival: aspirin and nitroglycerin Related Data Previous Rx's Medication Instructions Recorded acetaminophen 500 mg tablet 1,000 mg PO QID PRN #20 tab 04/28/21 ibuprofen 600 mg tablet 600 mg PO Q6H PRN #20 tab 04/28/21 ibuprofen 600 mg tablet 600 mg PO Q6H PRN #20 tab 04/28/21 lorazepam 0.5 mg tablet (Ativan) 0.5 mg PO TID PRN #7 tab 04/28/21 lorazepam 0.5 mg tablet (Ativan) 0.5 mg PO TID PRN #7 tab 04/28/21 lorazepam 0.5 mg tablet (Ativan) 0.5 mg PO TID PRN #14 tab 07/24/21 doxycycline monohydrate 100 mg 100 mg PO BID #14 cap 08/01/21 capsule prednisone 20 mg tablet 40 mg PO DAILY 5 Days #10 tab 08/01/21 Allergies Allergy/AdvReac Type Severity Reaction Status Date / Time haloperidol [From Haldol] Allergy Agitated Verified 06/07/21 16:29 metoclopramide [From Reglan] Allergy Agitated Verified 06/07/21 16:29 Review of Systems Review of Systems: Constitutional : No Weight loss, No Fever, No Chills ENT/Mouth : No sore throat, No Rhinorrhea Eyes: No Eye Pain, No Swelling Cardiovascular : pos Chest Pain, pos SOB, no Dyspnea on Exertion, No Orthopnea, No Edema, No Palpitations Respiratory : No Cough, No Sputum Gastrointestinal : pos Nausea, No Vomiting, No Diarrhea, No abdominal Pain, No Hematochezia, No Melena Genitourinary : No Dysuria, No Urinary Frequency Musculoskeletal : No joint pain, No Myalgias, No Joint Swelling Skin : No Skin Lesions, No rash Neuro : pos Weakness, No Numbness, pos Dizziness, No Headache Psych : No Anxiety/Panic, No Depression Heme/Lymph: No Bruising, No Lymphadenopathy Endocrine : No Polyuria, No Polydipsia All other systems reviewed and are negative [facility] Past Medical History Attestation statement: The following information was validated with the patient. Medical History (Updated 08/01/21 @ 00:19 by Mariluz Laurent DO) Anemia Anxiety Asthma COVID-19 Gastritis SVT (supraventricular tachycardia) Surgical History Hx of cholecystectomy Social History Social History (Updated 07/31/21 @ 21:29 by Mariluz Laurent DO) Patient Tobacco Use Status: Current everyday Tobacco user e-Cigarette/Vaping Use: Currently Using Substance Use Type: Crack/Cocaine, Former Substance User and Heroin Advance Directives: No Advance Directives Information Provided: No Patient : No Physical Exam Vital Signs: Vital Signs: Last Vital Signs Temp 97.7 F 07/31/21 23:52 Pulse 65 07/31/21 23:52 Resp 16 07/31/21 23:52 BP 112/60 07/31/21 23:52 Pulse Ox 97 07/31/21 23:52 BMI result Body Mass Index 34.7 Appearance: Alert. Oriented X3. No acute distress. Anxious Eyes: Pupils equal, round and reactive to light. ENT: Pharynx normal. Neck: Normal inspection. Neck supple. CVS: tachycardic heart rate and rhythm. Pulses normal. Respiratory: No respiratory distress. Breath sounds normal. Abdomen: Soft and non-tender. Skin: Skin warm and dry. Normal skin color. Normal skin turgor. Extremities: No lower extremity edema. No calf ttp Neuro: Oriented X 3. No motor deficit. No sensory deficit. Course Course Course Narrative: ddimer mildly elevated will obtain CTA trop negative, prior EKG changes noted in past no PE, low ddimer will start on prednisone and DC refer to cardiology HR 65 at this time will hold on metoprolol MDM - Chest Pain MDM Narrative Medical decision making narrative: 36 yo female hx of SVT no longer on bblockers (took herself off), anxiety, in recovery from substance abuse, dx with COVID 2/2 just tested negative since dx has noted bouts of dyspnea, chest tightness, palpitations and rapid HR - at this time will obtain troponin, EKG, ddimer, labs, hydrate and IV ativan for component of anxiety. Most likely given her hx and issues with elevated HR will need to resume her metoprolol - she denies any cocaine abuse. Lab Data Result diagrams: 07/31/21 21:49 07/31/21 21:49 Labs: Lab Results 07/31/21 07/31/21 07/31/21 Range/Units 21:49 21:49 21:49 WBC 8.5 (4.8-10.8) X10*3/uL RBC 4.82 (4.20-5.50) X10*6/uL Hgb 13.8 (12.0-16.0) g/dl Hct 40.9 (37.0-47.0) % MCV 84.9 (80.0-98.0) fL MCH 28.6 (27.0-33.0) pg MCHC 33.7 (31.0-35.0) g/dl RDW 12.8 (11.0-16.0) % Plt Count 216 (160-400) X10*3/uL MPV 8.9 L (9.4-12.3) fL Immature Gran % (Auto) 0.2 (0.0-0.4) % Neut % (Auto) 48.8 (45-73) % Lymph % (Auto) 44.2 H (20-40) % [place] % (Auto) 4.8 (2-11) % Eos % (Auto) 1.9 (0-4) % Baso % (Auto) 0.1 (0-2) % Lymph # (Auto) 3.7 (1.2-4.9) X10*3/uL [place] # (Auto) 0.4 (0.1-1.2) X10*3/uL Eos # (Auto) 0.2 (0.0-0.4) X10*3/uL Baso # (Auto) 0.0 (0.0-0.2) X10*3/uL Abs Immat Gran (auto) 0.02 (0.00-0.03) X10*3/uL Absolute Neuts (auto) 4.1 (2.0-8.3) x10*3/uL Absolute Nucleated RBC 0.000 (0.0-0.012) X10*3/uL Nucleated RBC % (auto) 0.0 (0.0-0.2) /100WBC D-Dimer High Sensitivty 248 NG/ML Sodium 138 (135-145) mmol/L Potassium 4.0 (3.3-5.1) mmol/L Chloride 103 (96-108) mmol/L Carbon Dioxide 27 (22-29) mmol/L Anion Gap 12 (12-20) BUN 12 (9-16) mg/dL Creatinine 0.95 (0.5-1.4) mg/dL Estim Creat Clear Calc 88.3 Estimated GFR > 60 Random Glucose 136 H (60-115) mg/dL Calcium 9.9 D (8.4-10.2) mg/dL Magnesium 1.8 (1.6-2.6) mg/dL Total Bilirubin < 0.2 (0.0-1.0) mg/dL Direct Bilirubin < 0.2 (0.0-0.5) mg/dL AST 19 (5-31) U/L ALT 19 (0-31) U/L Alkaline Phosphatase 121 H (39-117) U/L Troponin I High Sens (<3.5-17.0) ng/L C-Reactive Protein 0.65 H (< or = 0.50) mg/dL Total Protein 7.3 (6.5-8.0) g/dL Albumin 4.1 (3.5-5.0) g/dL TSH 1.03 (0.32-4.0) uIU/mL Urine Test (NEGATIVE) 07/31/21 07/31/21 Range/Units 21:49 23:15 WBC (4.8-10.8) X10*3/uL RBC (4.20-5.50) X10*6/uL Hgb (12.0-16.0) g/dl Hct (37.0-47.0) % MCV (80.0-98.0) fL MCH (27.0-33.0) pg MCHC (31.0-35.0) g/dl RDW (11.0-16.0) % Plt Count (160-400) X10*3/uL MPV (9.4-12.3) fL Immature Gran % (Auto) (0.0-0.4) % Neut % (Auto) (45-73) % Lymph % (Auto) (20-40) % [place] % (Auto) (2-11) % Eos % (Auto) (0-4) % Baso % (Auto) (0-2) % Lymph # (Auto) (1.2-4.9) X10*3/uL [place] # (Auto) (0.1-1.2) X10*3/uL Eos # (Auto) (0.0-0.4) X10*3/uL Baso # (Auto) (0.0-0.2) X10*3/uL Abs Immat Gran (auto) (0.00-0.03) X10*3/uL Absolute Neuts (auto) (2.0-8.3) x10*3/uL Absolute Nucleated RBC (0.0-0.012) X10*3/uL Nucleated RBC % (auto) (0.0-0.2) /100WBC D-Dimer High Sensitivty NG/ML Sodium (135-145) mmol/L Potassium (3.3-5.1) mmol/L Chloride (96-108) mmol/L Carbon Dioxide (22-29) mmol/L Anion Gap (12-20) BUN (9-16) mg/dL Creatinine (0.5-1.4) mg/dL Estim Creat Clear Calc Estimated GFR Random Glucose (60-115) mg/dL Calcium (8.4-10.2) mg/dL Magnesium (1.6-2.6) mg/dL Total Bilirubin (0.0-1.0) mg/dL Direct Bilirubin (0.0-0.5) mg/dL AST (5-31) U/L ALT (0-31) U/L Alkaline Phosphatase (39-117) U/L Troponin I High Sens < 3.5 (<3.5-17.0) ng/L C-Reactive Protein (< or = 0.50) mg/dL Total Protein (6.5-8.0) g/dL Albumin (3.5-5.0) g/dL TSH (0.32-4.0) uIU/mL Urine Test NEGATIVE (NEGATIVE) ECG Data ECG #1: Attestation: I personally reviewed and interpreted this ECG as follows: ECG interpretation date: 07/31/21 ECG interpretation time: 21:35 Interpretation: Rate: 103 Rhythm: sinus tachycardia [place]: normal Normal P waves. Normal AMAYA. Normal QRS complex. ST T wave : no CLEOPATRA, nonspecific findings slight ST depressions anterior leads qTC: normal prior studies: unchanged to Apr 2021 - similar findings The study has been interpreted contemporaneously by me. . Discharge Plan Discharge Clinical Impression: Chest pain, Anxiety, Bronchitis Patient Disposition: Home, Self-Care Instructions: Chest Pain (ED), Acute Bronchitis (ED), Anxiety (ED) Additional Instructions: return to ED for any worsening symptoms or concerns Prescriptions: New prednisone 20 mg tablet 40 mg PO DAILY 5 Days Qty: 10 0RF doxycycline monohydrate 100 mg capsule 100 mg PO BID Qty: 14 0RF No Action lorazepam [Ativan] 0.5 mg tablet 0.5 mg PO TID PRN (Reason: anxiety) Qty: 7 0RF Rx Instructions: This medication may cause drowsiness use with caution, no driving for 6 hours after taking ibuprofen 600 mg tablet 600 mg PO Q6H PRN (Reason: fever or pain) Qty: 20 0RF acetaminophen 500 mg tablet 1,000 mg PO QID PRN (Reason: fever or pain) Qty: 20 0RF lorazepam [Ativan] 0.5 mg tablet 0.5 mg PO TID PRN (Reason: anxiety) Qty: 7 0RF ibuprofen 600 mg tablet 600 mg PO Q6H PRN (Reason: pain) Qty: 20 0RF lorazepam [Ativan] 0.5 mg tablet 0.5 mg PO TID PRN (Reason: anxiety) Qty: 14 0RF Rx Instructions: This medication may cause drowsiness no driving for 6 hours after taking Referrals: Ruiz Harris MD [Physician] - 1 week Stand Alone Forms: Work/School Release
[2021-07-31 21:23] VITALS: BP 112/66; BP 122/78; PULSE 100; PULSE 116; RESP 16; TEMP 36.6; O2SAT 97; BMI 34.7
--- NOTE | 2021-07-31 21:26 | ECG_ITS ---
Test Reason : CHEST PAIN Blood Pressure : / mmHG Vent. Rate : 103 BPM Atrial Rate : 103 BPM P-R Int : 144 ms QRS Dur : 078 ms QT Int : 332 ms P-R-T Axes : 020 026 -06 degrees QTc Int : 434 ms Sinus tachycardia Nonspecific ST and T wave abnormality Abnormal ECG When compared with ECG of 24-JUL-2021 11:15, T wave inversion now evident in Anterior leads Referred By: Mariluz Laurent Electronically Signed By:Ronan Chirinos
[2021-07-31 21:56] LABS: MANUAL DIFF FLAG NO
[2021-07-31 21:57] LABS: Basophils Percent Auto 0.1 % (0-2); Eosinophils Absolute Auto 0.2 X10*3/uL (0.0-0.4); Eosinophils Percent Auto 1.9 % (0-4); Hematocrit 40.9 % (37.0-47.0); Hemoglobin 13.8 g/dl (12.0-16.0); Imm Gran Abs Auto 0.02 X10*3/uL (0.00-0.03); Imm Gran Pct Auto 0.2 % (0.0-0.4); Lymphocytes Absolute Auto 3.7 X10*3/uL (1.2-4.9); Lymphocytes Percent Auto 44.2 % (20-40); Mean Corpuscular HGB Conc 33.7 g/dl (31.0-35.0); Mean Corpuscular Hemoglobin 28.6 pg (27.0-33.0); Mean Corpuscular Volume 84.9 fL (80.0-98.0); Mean Platelet Volume 8.9 fL (9.4-12.3); Monocytes Absolute Auto 0.4 X10*3/uL (0.1-1.2); Monocytes Percent Auto 4.8 % (2-11); Neutrophils Absolute Auto 4.1 x10*3/uL (2.0-8.3); Neutrophils Percent Auto 48.8 % (45-73); Platelet Count 216 X10*3/uL (160-400); Red Blood Count 4.82 X10*6/uL (4.20-5.50); Red Cell Distribution Width 12.8 % (11.0-16.0); White Blood Count 8.5 X10*3/uL (4.8-10.8)
[2021-07-31] MEDS: LORazepam 2 MG/ML VIAL 1 MG IVPUSH (21:59)
[2021-07-31] MEDS: ondansetron HCL 4 MG/2 ML VIAL IVPUSH (22:00)
[2021-07-31] MEDS: 0.9 % Sodium Chloride 1,000 ML 999 ML IVCONT (22:00)
[2021-07-31 22:04] LABS: D Dimer High Sensitivity 248 NG/ML
[2021-07-31 22:17] LABS: Troponin-I High Sensitivity < 3.5 ng/L (<3.5-17.0)
[2021-07-31 22:29] LABS: Alanine Aminotransferase 19 U/L (0-31); Albumin Level 4.1 g/dL (3.5-5.0); Alkaline Phosphatase 121 U/L (39-117); Anion Gap 12 (12-20); Aspartate Amino Transferase 19 U/L (5-31); Bilirubin Direct < 0.2 mg/dL (0.0-0.5); Bilirubin Total < 0.2 mg/dL (0.0-1.0); Blood Urea Nitrogen 12 mg/dL (9-16); C Reactive Protein 0.65 mg/dL (< or = 0.50); Calcium 9.9 mg/dL (8.4-10.2); Carbon Dioxide 27 mmol/L (22-29); Chloride 103 mmol/L (96-108); Creatinine Clr Calc Pharmacy 88.3; Estimated Glomerular Filt Rate > 60; Glucose Random 136 mg/dL (60-115); Magnesium 1.8 mg/dL (1.6-2.6); Sodium 138 mmol/L (135-145); Total Protein 7.3 g/dL (6.5-8.0)
[2021-07-31 22:32] LABS: TSH reflex Free T4 1.03 uIU/mL (0.32-4.0)
[2021-07-31 23:27] LABS: UPreg QC Valid YES; Urine Pregnancy NEGATIVE (NEGATIVE)
[2021-07-31 23:52] VITALS: BP 112/60; PULSE 65; RESP 16; TEMP 36.5; O2SAT 97
[2021-07-31] MEDS: iohexoL 350 MG/ML 100 ML INFUS..BTL 65 ML IV (23:56)
[2021-08-01 00:30] VITALS: PULSE 64
== END 2021-08-01 00:39 | disposition home or self-care (01) ==
PROVIDERS: Emergency Provider Emergency Medicine
DX: R07.9 Chest pain, unspecified (principal); F41.9 Anxiety disorder, unspecified; R06.02 Shortness of breath; J40 Bronchitis, not specified as acute or chronic; F17.200 Nicotine dependence, unspecified, uncomplicated
CPT/HCPCS: 36415; 71275; 80048; 80076; 81025; 83735; 84443; 84484; 85025; 85379; 86140; 93005; 96361; 96374; 96375; 99284; J2060; J2405; Q9967

== ENCOUNTER 2021-10-10 20:03 | Emergency (ER) | payer OTHER, SELFPAY ==
[2021-10-10 20:24] VITALS: BP 118/54; PULSE 60; RESP 18; TEMP 36.9; O2SAT 100; BMI 32.5
--- NOTE | 2021-10-10 22:12 | ED_ITS ---
HPI - Dental/Oral General Chief complaint: Dental/Oral Stated complaint: facial pain radiates to shoulder Time Seen by Provider: 10/10/21 22:12 History of Present Illness HPI Narrative: Patient is a 36-year-old female status post 2 for extraction in the left lower molar are. Done on . Presents today was still having pain in that area. Localized to the area extends to the jaw. The patient from home. No fever no chills no systemic complaints. Able tolerate fluid there is no change in voice. Patient from home. Related Data Previous Rx's Medication Instructions Recorded acetaminophen 500 mg tablet 1,000 mg PO QID PRN #20 tab 04/28/21 ibuprofen 600 mg tablet 600 mg PO Q6H PRN #20 tab 04/28/21 ibuprofen 600 mg tablet 600 mg PO Q6H PRN #20 tab 04/28/21 lorazepam 0.5 mg tablet (Ativan) 0.5 mg PO TID PRN #7 tab 04/28/21 lorazepam 0.5 mg tablet (Ativan) 0.5 mg PO TID PRN #7 tab 04/28/21 lorazepam 0.5 mg tablet (Ativan) 0.5 mg PO TID PRN #14 tab 07/24/21 doxycycline monohydrate 100 mg 100 mg PO BID #14 cap 08/01/21 capsule prednisone 20 mg tablet 40 mg PO DAILY 5 Days #10 tab 08/01/21 ibuprofen 400 mg tablet 400 mg PO Q6H PRN #20 tab 10/10/21 Allergies Allergy/AdvReac Type Severity Reaction Status Date / Time haloperidol [From Haldol] Allergy Agitated Verified 06/07/21 16:29 metoclopramide [From Reglan] Allergy Agitated Verified 06/07/21 16:29 Review of Systems Review of Systems: No fever no chills no chest pain or shortness breath no nausea no vomiting Yes all other systems are reviewed and are negative [facility] Past Medical History Attestation statement: The following information was validated with the patient. Medical History Anemia Anxiety Asthma COVID-19 Gastritis SVT (supraventricular tachycardia) Surgical History Hx of cholecystectomy Social History Social History Patient Tobacco Use Status: Current everyday Tobacco user e-Cigarette/Vaping Use: Currently Using Substance Use Type: Crack/Cocaine, Former Substance User and Heroin Advance Directives: No Advance Directives Information Provided: Yes Patient : No Physical Exam Vital Signs: Vital Signs: Last Vital Signs Temp 98.5 F 10/10/21 20:24 Pulse 60 10/10/21 20:24 Resp 18 10/10/21 20:24 BP 118/54 L 10/10/21 20:24 Pulse Ox 100 10/10/21 20:24 BMI result Body Mass Index 32.5 Appearance: Alert. Oriented X3. No acute distress. Eyes: Pupils equal, round and reactive to light. ENT: Pharynx normal. The floor of the mouth was soft. Examination of the sock ets no evidence of abscess. No bleeding. Posterior pharynx was normal. No erythema noted. Neck: Normal inspection. Neck supple. No lymph nodes noted. No crepitus CVS: Normal heart rate and rhythm. Pulses normal. Normal S1 and S2 Respiratory: No respiratory distress. Breath sounds normal. No Wheezing. No rales Abdomen: Soft and nontender. No rigidity. No distention. good BS x4 Skin: Skin warm and dry. Normal skin color. Normal skin turgor. Extremities: No lower extremity edema. Neurovascular intact to all extremities. No Lacerations. No Rash Neuro: Oriented X 3. No motor deficit. No sensory deficit. Moving all extermities. No slurred speech MDM - Dental/Oral MDM Narrative Medical decision making narrative: Well-appearing no distress. Will discharge patient home. Follow-up with dentist on an outpatient basis. Medical Records Attestation: I reviewed the patient's medical records. Discharge Plan Discharge Clinical Impression: Toothache Patient Disposition: Home, Self-Care Instructions: Toothache (ED) Prescriptions: New ibuprofen 400 mg tablet 400 mg PO Q6H PRN (Reason: pain) Qty: 20 0RF No Action lorazepam [Ativan] 0.5 mg tablet 0.5 mg PO TID PRN (Reason: anxiety) Qty: 7 0RF Rx Instructions: This medication may cause drowsiness use with caution, no driving for 6 hours after taking ibuprofen 600 mg tablet 600 mg PO Q6H PRN (Reason: fever or pain) Qty: 20 0RF acetaminophen 500 mg tablet 1,000 mg PO QID PRN (Reason: fever or pain) Qty: 20 0RF lorazepam [Ativan] 0.5 mg tablet 0.5 mg PO TID PRN (Reason: anxiety) Qty: 7 0RF ibuprofen 600 mg tablet 600 mg PO Q6H PRN (Reason: pain) Qty: 20 0RF prednisone 20 mg tablet 40 mg PO DAILY 5 Days Qty: 10 0RF doxycycline monohydrate 100 mg capsule 100 mg PO BID Qty: 14 0RF lorazepam [Ativan] 0.5 mg tablet 0.5 mg PO TID PRN (Reason: anxiety) Qty: 14 0RF Rx Instructions: This medication may cause drowsiness no driving for 6 hours after taking Referrals: Physician,Unknown J [Primary Care Provider] - (Please follow-up with your dentist on an outpatient basis.)
[2021-10-10] MEDS: Ibuprofen 600 MG TABLET PO (22:25)
== END 2021-10-10 22:29 | disposition home or self-care (01) ==
PROVIDERS: Emergency Provider Emergency Medicine Emergency Medical Services
DX: K08.89 Other specified disorders of teeth and supporting structures (principal); F14.90 Cocaine use, unspecified, uncomplicated; F11.90 Opioid use, unspecified, uncomplicated; Z87.891 Personal history of nicotine dependence; Z79.899 Other long term (current) drug therapy
CPT/HCPCS: 99283; 99284

== ENCOUNTER 2021-11-22 00:32 | Emergency (ER) | payer OTHER, SELFPAY ==
--- NOTE | ~2021-11-22 | XR_ITS ---
EXAMINATION: XR CHEST CLINICAL INFORMATION: Chest pain COMPARISON: 07/24/2021 TECHNIQUE: Frontal view of the chest was obtained. FINDINGS: The lungs are clear with no focal consolidation. No evidence of pneumothorax, pulmonary edema, or pleural effusions. The cardiomediastinal silhouette is unremarkable. No acute osseous findings. XR/XR chest 1V IMPRESSION: No acute cardiopulmonary findings.
--- NOTE | 2021-11-22 00:44 | ECG_ITS ---
Test Reason : CHEST PAIN Blood Pressure : / mmHG Vent. Rate : 055 BPM Atrial Rate : 055 BPM P-R Int : 130 ms QRS Dur : 086 ms QT Int : 452 ms P-R-T Axes : 030 038 -04 degrees QTc Int : 432 ms Sinus bradycardia with sinus arrhythmia Nonspecific ST and T wave abnormality When compared with ECG of 31-JUL-2021 21:25, Vent. rate has decreased BY [address] no longer depressed in Anterior leads Nonspecific T wave abnormality no longer evident in Lateral leads Referred By: Lizbeth Mustafa Electronically Signed By:CISCO BARRERA MD
[2021-11-22 00:49] VITALS: BP 1107/47; RESP 18; TEMP 36.8; O2SAT 99; BMI 38.2
--- NOTE | 2021-11-22 01:09 | ED.CHESTPAIN ---
HPI - Chest Pain General Chief Complaint: Chest Pain Stated Complaint: chest pain Time Seen by Provider: 11/22/21 00:44 Source: patient and EMS Mode of arrival: EMS Limitations: no limitations History of Present Illness HPI narrative: 36-year-old female came in for evaluation of chest pain. Mid chest pain started 5 hours before arrival felt like dull aching pain, was radiating to the back and left scapula, pain has been intermittent all day but became constant for they last 4 hours, patient also get episode of shortness of breath, pain is worsening with touching her sternal area. Symptoms started 5 days ago when she was at the gym of generalized weakness, blurry vision. Patient with a history SVT been feeling palpitation. No recent travel, no extremity swelling or tenderness. Patient smokes 10 cigarettes a day but declined using any drugs. No other medical problems, patient is adopted bone to know much history about her biological family. Related Data Previous Rx's Medication Instructions Recorded acetaminophen 500 mg tablet 1,000 mg PO QID PRN #20 tab 04/28/21 ibuprofen 600 mg tablet 600 mg PO Q6H PRN #20 tab 04/28/21 ibuprofen 600 mg tablet 600 mg PO Q6H PRN #20 tab 04/28/21 lorazepam 0.5 mg tablet (Ativan) 0.5 mg PO TID PRN #7 tab 04/28/21 lorazepam 0.5 mg tablet (Ativan) 0.5 mg PO TID PRN #7 tab 04/28/21 lorazepam 0.5 mg tablet (Ativan) 0.5 mg PO TID PRN #14 tab 07/24/21 doxycycline monohydrate 100 mg 100 mg PO BID #14 cap 08/01/21 capsule prednisone 20 mg tablet 40 mg PO DAILY 5 Days #10 tab 08/01/21 ibuprofen 400 mg tablet 400 mg PO Q6H PRN #20 tab 10/10/21 Allergies Allergy/AdvReac Type Severity Reaction Status Date / Time haloperidol [From Haldol] Allergy Agitated Verified 06/07/21 16:29 metoclopramide [From Reglan] Allergy Agitated Verified 06/07/21 16:29 Review of Systems Review of Systems: All other systems are reviewed and are negative Constitutional: Reports as per HPI and Reports no additional constitutional complaints Eyes: Reports as per HPI and Reports no additional eye complaints Reports system reviewed and no additional complaints, except as documented Cardiovascular: Reports as per HPI and Reports no additional cardiovascular complaints Respiratory: Reports as per HPI and Reports no additional respiratory complaints Gastrointestinal: Reports as per HPI and Reports no additional gastrointestinal complaints Genitourinary: Reports no additional female genitourinary complaints Musculoskeletal: Reports no additional musculoskeletal complaints Skin/Breast: Reports system reviewed and no additional complaints, except as docu Psychiatric: Reports no additional psychiatric complaints Endocrine: Reports no additional endocrine complaints Hematologic/Lymphatic: Reports no additional hematologic/lymphatic complaints Allergic/Immunologic: Reports no additional allergic/immunologic complaints Reports system reviewed and no additional complaints, except as documented and Reports Abnormal speech present [facility] Past Medical History Medical History Anemia Anxiety Asthma COVID-19 Gastritis SVT (supraventricular tachycardia) Surgical History Hx of cholecystectomy Social History Social History Patient Tobacco Use Status: Current everyday Tobacco user e-Cigarette/Vaping Use: Currently Using Substance Use Type: Crack/Cocaine, Former Substance User and Heroin Advance Directives: No Advance Directives Information Provided: No Physical Exam Vital Signs: Vital Signs: Last Vital Signs Temp 98.3 F 11/22/21 00:49 Resp 18 11/22/21 00:49 BP 1107/47 H 11/22/21 00:49 Pulse Ox 99 11/22/21 00:49 BMI result Body Mass Index 38.2 Vital signs have been reviewed as appeared to be correct. Blood pressure normal. Heart rate normal. Respiration rate normal. Temperature normal. Oxygen saturation normal. Appearance: Alert. Oriented X3. No acute distress. Head: Normal external exam. Normocephalic. Atraumatic. No Willett signs noted. No raccoon eyes noted Eyes: PERRLA. EOMI. Conjunctiva and sclera normal. Eyelids normal. ENT: TM's Normal. Pharynx normal. Uvula midline. Moist mucous membranes. No trismus noted. No drooling noted. No muffled voice noted. Neck: Normal inspection. Neck supple. FROM. No adenopathy. Thyroid Normal. No meningeal signs. No neck mass noted. CVS: Normal heart rate and rhythm. Heart sound normal. No murmurs noted. Pulses normal throughout. Respiratory: No respiratory distress. Painless inspiration. Breath sounds normal. No wheezes/rales/rhonchi noted. Lower sternal reproducible tenderness, no deformity. No accessory muscle usage noted or decreased air movement noted. Abdomen: Soft and nontender. Bowel sounds normal in all 4 quadrants. No distention noted. No organomegaly noted. No visible injury noted. Back: No CVA tenderness. Full range of motion noted. Skin: Skin warm and dry. Normal skin color. Normal skin turgor. No rashes/lesions/lacerations noted. Extremities: No lower extremity edema. Extremities exhibit normal range of motion. Extremities nontender. Neuro: Oriented X 3. Cranial nerve exam: II-XII are grossly intact No motor deficit. No sensory deficit. Reflexes normal. Course Course Course Narrative: Assessment and plan. 36-year-old female with reproducible chest pain, normal labs, normal vital signs, EKG is unremarkable. Patient with HEART score of 1, patient also at low risk of PE/DVT with negative D-dimer. MDM - Chest Pain Lab Data Attestation: I reviewed the patient's lab results. Result diagrams: 11/22/21 01:15 11/22/21 01:15 Labs: Lab Results 11/22/21 11/22/21 11/22/21 Range/Units 01:15 01:15 01:15 WBC 9.5 (4.8-10.8) X10*3/uL RBC 4.29 (4.20-5.50) X10*6/uL Hgb 12.7 (12.0-16.0) g/dl Hct 37.8 (37.0-47.0) % MCV 88.1 (80.0-98.0) fL MCH 29.6 (27.0-33.0) pg MCHC 33.6 (31.0-35.0) g/dl RDW 13.1 (11.0-16.0) % Plt Count 241 (160-400) X10*3/uL MPV 8.5 L (9.4-12.3) fL Immature Gran % (Auto) 0.2 (0.0-0.4) % Neut % (Auto) 49.6 (45-73) % Lymph % (Auto) 42.5 H (20-40) % [place] % (Auto) 5.4 (2-11) % Eos % (Auto) 2.2 (0-4) % Baso % (Auto) 0.1 (0-2) % Lymph # (Auto) 4.0 (1.2-4.9) X10*3/uL [place] # (Auto) 0.5 (0.1-1.2) X10*3/uL Eos # (Auto) 0.2 (0.0-0.4) X10*3/uL Baso # (Auto) 0.0 (0.0-0.2) X10*3/uL Abs Immat Gran (auto) 0.02 (0.00-0.03) X10*3/uL Absolute Neuts (auto) 4.7 (2.0-8.3) x10*3/uL Absolute Nucleated RBC 0.000 (0.0-0.012) X10*3/uL Nucleated RBC % (auto) 0.0 (0.0-0.2) /100WBC D-Dimer High Sensitivty 153 NG/ML Sodium 140 (135-145) mmol/L Potassium 3.8 (3.3-5.1) mmol/L Chloride 111 H (96-108) mmol/L Carbon Dioxide 22 (22-29) mmol/L Anion Gap 11 L (12-20) BUN 19 H D (9-16) mg/dL Creatinine 1.00 (0.5-1.4) mg/dL Estim Creat Clear Calc 85.1 Estimated GFR > 60 Random Glucose 129 H (60-115) mg/dL Calcium 9.2 D (8.4-10.2) mg/dL Total Bilirubin 0.2 (0.0-1.0) mg/dL Direct Bilirubin < 0.2 (0.0-0.5) mg/dL AST 19 (5-31) U/L ALT 18 (0-31) U/L Alkaline Phosphatase 101 (39-117) U/L Total Protein 6.7 (6.5-8.0) g/dL Albumin 4.1 (3.5-5.0) g/dL Lipase 50 (8-78) U/L Imaging Data Chest x-ray: Attestation: I personally reviewed and interpreted this imaging study as follows: Radiologist's impression: No acute intrathoracic pathology. ECG Data ECG #1: Attestation: I personally reviewed and interpreted this ECG as follows: Interpretation: Sinus bradycardia at 55 beats per minutes with sinus arrhythmia, normal axis deviation, normal intervals, no change from previous EKG. Discharge Plan Discharge Clinical Impression: Anterior chest wall pain Patient Disposition: Home, Self-Care Instructions: Chest Wall Pain (ED) Prescriptions: No Action lorazepam [Ativan] 0.5 mg tablet 0.5 mg PO TID PRN (Reason: anxiety) Qty: 7 0RF Rx Instructions: This medication may cause drowsiness use with caution, no driving for 6 hours after taking ibuprofen 600 mg tablet 600 mg PO Q6H PRN (Reason: fever or pain) Qty: 20 0RF acetaminophen 500 mg tablet 1,000 mg PO QID PRN (Reason: fever or pain) Qty: 20 0RF lorazepam [Ativan] 0.5 mg tablet 0.5 mg PO TID PRN (Reason: anxiety) Qty: 7 0RF ibuprofen 600 mg tablet 600 mg PO Q6H PRN (Reason: pain) Qty: 20 0RF prednisone 20 mg tablet 40 mg PO DAILY 5 Days Qty: 10 0RF doxycycline monohydrate 100 mg capsule 100 mg PO BID Qty: 14 0RF lorazepam [Ativan] 0.5 mg tablet 0.5 mg PO TID PRN (Reason: anxiety) Qty: 14 0RF Rx Instructions: This medication may cause drowsiness no driving for 6 hours after taking ibuprofen 400 mg tablet 400 mg PO Q6H PRN (Reason: pain) Qty: 20 0RF Referrals: Physician,Unknown J [Primary Care Provider] -
[2021-11-22 01:21] LABS: MANUAL DIFF FLAG NO
[2021-11-22 01:22] LABS: Basophils Percent Auto 0.1 % (0-2); Eosinophils Absolute Auto 0.2 X10*3/uL (0.0-0.4); Eosinophils Percent Auto 2.2 % (0-4); Hematocrit 37.8 % (37.0-47.0); Hemoglobin 12.7 g/dl (12.0-16.0); Imm Gran Abs Auto 0.02 X10*3/uL (0.00-0.03); Imm Gran Pct Auto 0.2 % (0.0-0.4); Lymphocytes Percent Auto 42.5 % (20-40); Mean Corpuscular HGB Conc 33.6 g/dl (31.0-35.0); Mean Corpuscular Hemoglobin 29.6 pg (27.0-33.0); Mean Corpuscular Volume 88.1 fL (80.0-98.0); Mean Platelet Volume 8.5 fL (9.4-12.3); Monocytes Absolute Auto 0.5 X10*3/uL (0.1-1.2); Monocytes Percent Auto 5.4 % (2-11); Neutrophils Absolute Auto 4.7 x10*3/uL (2.0-8.3); Neutrophils Percent Auto 49.6 % (45-73); Platelet Count 241 X10*3/uL (160-400); Red Blood Count 4.29 X10*6/uL (4.20-5.50); Red Cell Distribution Width 13.1 % (11.0-16.0); White Blood Count 9.5 X10*3/uL (4.8-10.8)
[2021-11-22 01:29] LABS: D Dimer High Sensitivity 153 NG/ML
[2021-11-22 01:38] LABS: Alanine Aminotransferase 18 U/L (0-31); Albumin Level 4.1 g/dL (3.5-5.0); Alkaline Phosphatase 101 U/L (39-117); Anion Gap 11 (12-20); Aspartate Amino Transferase 19 U/L (5-31); Bilirubin Direct < 0.2 mg/dL (0.0-0.5); Bilirubin Total 0.2 mg/dL (0.0-1.0); Blood Urea Nitrogen 19 mg/dL (9-16); Calcium 9.2 mg/dL (8.4-10.2); Carbon Dioxide 22 mmol/L (22-29); Chloride 111 mmol/L (96-108); Creatinine Clr Calc Pharmacy 85.1; Estimated Glomerular Filt Rate > 60; Glucose Random 129 mg/dL (60-115); Lipase 50 U/L (8-78); Potassium 3.8 mmol/L (3.3-5.1); Sodium 140 mmol/L (135-145); Total Protein 6.7 g/dL (6.5-8.0)
[2021-11-22 01:41] LABS: Troponin-I High Sensitivity < 3.5 ng/L (<3.5-17.0)
[2021-11-22 02:04] LABS: Influenza A PCR NEGATIVE (Negative); Influenza B PCR NEGATIVE (Negative); Resp Syncy Virus RNA Qual PCR NEGATIVE (Negative); SARS COV2 PCR INHOUSE NEGATIVE (Negative)
[2021-11-22 03:43] LABS: Appearance Urine CLEAR; Color Urine YELLOW; Glucose Urine UA NEG (NEG); Leukocyte Esterase Urine NEG (NEG); Nitrite Urine NEG (NEG); Specific Gravity - Urine 1.015 (1.005-1.025); UACC Culture Trigger NO; Urine Blood 2+ (NEG); Urine Ketones NEG (NEG); Urine Protein NEG (NEG-TRACE)
[2021-11-22 03:50] LABS: Bacteria Urine 1+ /LPF; Squamous Epithelial Cell Urine 2+ /LPF; WBC Urine 0-2 /HPF (0-4)
[2021-11-22 04:11] VITALS: BP 137/82; PULSE 86; RESP 16; TEMP 36.8; O2SAT 98
== END 2021-11-22 04:53 | disposition home or self-care (01) ==
PROVIDERS: Emergency Provider Emergency Medicine
DX: R07.89 Other chest pain (principal); F17.200 Nicotine dependence, unspecified, uncomplicated; Z20.822 Contact with and (suspected) exposure to COVID-19
CPT/HCPCS: 0241U; 36415; 71045; 80048; 80076; 81001; 83690; 84484; 85025; 85379; 93005; 99283; 99284

== ENCOUNTER 2021-11-27 19:35 | Emergency (ER) | payer OTHER, SELFPAY ==
--- NOTE | ~2021-11-27 | CT_ITS ---
EXAMINATION: CT ABDOMEN AND PELVIS WITH CONTRAST CLINICAL INFORMATION: Epigastric pain COMPARISON: None TECHNIQUE: Multidetector volumetric images were obtained from the superior aspect of the liver through the pubic symphysis following administration 85 mL of Omnipaque 350 intravenous contrast. Sagittal and coronal reformatted images were obtained on the technologist's workstation. Oral contrast: No This CT examination was performed using dose optimization techniques as appropriate, variously including the following: *Automated exposure control *Adjustment of mA and/or kV according to patient size (this includes techniques or standardized protocols for targeted exams where dose is matched to indication/reason for exam; i.e. extremities or head) *Use of iterative reconstruction technique DLP: 806 mGy-cm FINDINGS: LUNG BASES: The visualized lung bases are unremarkable. LIVER, GALLBLADDER, AND BILIARY TREE: The liver is normal in size, shape, and attenuation. No focal hepatic lesion or biliary ductal dilatation is present. Cholecystectomy. PANCREAS: Unremarkable. SPLEEN: Upper limits of normal in terms of size. ADRENAL GLANDS: Unremarkable. KIDNEYS AND URETERS: The kidneys are normal in size, shape, and attenuation. No hydronephrosis, hydroureter, or calculi seen. No perinephric stranding. BLADDER: Unremarkable. GASTROINTESTINAL TRACT: Small sliding-type hiatal hernia. The small and large bowel are unremarkable. The appendix is unremarkable. ABDOMINAL WALL: No significant hernia is appreciated. LYMPH NODES: Normal. VASCULAR: Unremarkable. PELVIC VISCERA: Uterus and adnexa unremarkable. OSSEOUS STRUCTURES: Unremarkable. CT/CT abdomen pelvis w con IMPRESSION: No acute findings within the abdomen or pelvis. Cholecystectomy. Small sliding-type hiatal hernia.
--- NOTE | ~2021-11-27 | XR_ITS ---
EXAMINATION: XR CHEST CLINICAL INFORMATION: Chest pain COMPARISON: 11/22/2021 TECHNIQUE: Frontal view of the chest was obtained. FINDINGS: No significant abnormality is noted involving the heart, lungs, mediastinum, bony thorax or soft tissues. XR/XR chest 1V IMPRESSION: No acute pulmonary disease.
[2021-11-27 21:08] VITALS: BP 113/70; PULSE 58; RESP 18; TEMP 36.8; O2SAT 98; BMI 33.5
--- NOTE | 2021-11-27 21:14 | ECG_ITS ---
Test Reason : cp Blood Pressure : / mmHG Vent. Rate : 050 BPM Atrial Rate : 050 BPM P-R Int : 130 ms QRS Dur : 084 ms QT Int : 420 ms P-R-T Axes : 029 023 -10 degrees QTc Int : 382 ms Sinus bradycardia with sinus arrhythmia Otherwise normal ECG When compared with ECG of 22-NOV-2021 00:56, No significant change was found Referred By: Generic ED Physician Electronically Signed By:Ronan Chirinos
[2021-11-27 21:38] LABS: MANUAL DIFF FLAG NO
[2021-11-27 21:41] LABS: Basophils Percent Auto 0.1 % (0-2); Eosinophils Absolute Auto 0.1 X10*3/uL (0.0-0.4); Eosinophils Percent Auto 1.2 % (0-4); Hematocrit 39.5 % (37.0-47.0); Hemoglobin 13.4 g/dl (12.0-16.0); Imm Gran Abs Auto 0.03 X10*3/uL (0.00-0.03); Imm Gran Pct Auto 0.3 % (0.0-0.4); Lymphocytes Absolute Auto 4.1 X10*3/uL (1.2-4.9); Lymphocytes Percent Auto 38.7 % (20-40); Mean Corpuscular HGB Conc 33.9 g/dl (31.0-35.0); Mean Corpuscular Hemoglobin 29.5 pg (27.0-33.0); Mean Platelet Volume 8.6 fL (9.4-12.3); Monocytes Absolute Auto 0.6 X10*3/uL (0.1-1.2); Monocytes Percent Auto 5.7 % (2-11); Neutrophils Absolute Auto 5.7 x10*3/uL (2.0-8.3); Platelet Count 276 X10*3/uL (160-400); Red Blood Count 4.54 X10*6/uL (4.20-5.50); Red Cell Distribution Width 12.6 % (11.0-16.0); White Blood Count 10.5 X10*3/uL (4.8-10.8)
[2021-11-27 21:53] LABS: Anion Gap 12 (12-20); Blood Urea Nitrogen 14 mg/dL (9-16); Calcium 9.3 mg/dL (8.4-10.2); Carbon Dioxide 21 mmol/L (22-29); Chloride 110 mmol/L (96-108); Creatinine Clr Calc Pharmacy 91.5; Estimated Glomerular Filt Rate > 60; Glucose Random 90 mg/dL (60-115); Sodium 139 mmol/L (135-145)
[2021-11-27 21:56] LABS: IDNOW Serial# 16C4AD1C; Influenza A Negative (Negative); Influenza B2 Negative (Negative)
[2021-11-27 21:57] LABS: COVID-19 Test Negative (Negative)
[2021-11-27 21:59] LABS: Troponin-I High Sensitivity < 3.5 ng/L (<3.5-17.0)
[2021-11-27 23:18] VITALS: BP 110/76; PULSE 52; RESP 18; O2SAT 96
--- NOTE | 2021-11-27 23:34 | ED.CHESTPAIN ---
HPI - Chest Pain General Chief Complaint: Chest Pain Stated Complaint: Abdominal Pain Time Seen by Provider: 11/27/21 23:28 History of Present Illness HPI narrative: Patient is a 36-year-old female presents today with having epigastric abdominal pain radiating to the back area. No fever no chills no cough no congestion or upper respiratory symptoms. Positive constipation. Previous history of cholecystectomy in the past. No other abdominal surgery in the past. Positive bowel movement. Pain is dull. There is mild burning to the back of the throat. Positive history of borderline diabetes. No history of PA no history of high cholesterol. Positive history of smoking. No diaphoresis. Patient is from home. Did not miss her menstruation. Patient claims she is not sexually active for the last 2 years. Does have a history of SVT. Positive lightheadedness. Positive nausea no vomiting. Took a bottle of Mag citrate to no avail Related Data Previous Rx's Medication Instructions Recorded acetaminophen 500 mg tablet 1,000 mg PO QID PRN fever or pain 04/28/21 #20 tabs ibuprofen 600 mg tablet 600 mg PO Q6H PRN fever or pain 04/28/21 #20 tabs ibuprofen 600 mg tablet 600 mg PO Q6H PRN pain #20 tabs 04/28/21 lorazepam 0.5 mg tablet (Ativan) 0.5 mg PO TID PRN anxiety #7 tabs 04/28/21 lorazepam 0.5 mg tablet (Ativan) 0.5 mg PO TID PRN anxiety #7 tabs 04/28/21 lorazepam 0.5 mg tablet (Ativan) 0.5 mg PO TID PRN anxiety #14 tabs 07/24/21 doxycycline monohydrate 100 mg 100 mg PO BID #14 caps 08/01/21 capsule prednisone 20 mg tablet 40 mg PO DAILY 5 days #10 tabs 08/01/21 ibuprofen 400 mg tablet 400 mg PO Q6H PRN pain #20 tabs 10/10/21 Allergies Allergy/AdvReac Type Severity Reaction Status Date / Time haloperidol [From Haldol] Allergy Agitated Verified 06/07/21 16:29 metoclopramide [From Reglan] Allergy Agitated Verified 06/07/21 16:29 Review of Systems Review of Systems: Positive abdominal pain Yes all other systems are reviewed and are negative [facility] Past Medical History Attestation statement: The following information was validated with the patient. Medical History Anemia Anxiety Asthma COVID-19 Gastritis SVT (supraventricular tachycardia) Surgical History Hx of cholecystectomy Social History Social History Patient Tobacco Use Status: Current everyday Tobacco user e-Cigarette/Vaping Use: Currently Using Substance Use Type: Crack/Cocaine, Former Substance User and Heroin Advance Directives: No Advance Directives Information Provided: No Physical Exam Vital Signs: Vital Signs: Last Vital Signs Temp 98.2 F 11/27/21 21:08 Pulse 49 L 11/28/21 01:13 Resp 19 11/28/21 01:13 BP 108/67 11/28/21 01:13 Pulse Ox 100 11/28/21 01:13 O2 Del Method 11/28/21 01:13 BMI result Body Mass Index 33.5 Appearance: Alert. Oriented X3. No acute distress. Eyes: Pupils equal, round and reactive to light. ENT: Pharynx normal. Neck: Normal inspection. Neck supple. No lymph nodes noted. No crepitus CVS: Normal heart rate and rhythm. Pulses normal. Normal S1 and S2 Respiratory: No respiratory distress. Breath sounds normal. No Wheezing. No rales Abdomen: Soft and nontender. No rigidity. No distention. good BS x4 Skin: Skin warm and dry. Normal skin color. Normal skin turgor. Extremities: No lower extremity edema. Neurovascular intact to all extremities. No Lacerations. No Rash Neuro: Oriented X 3. No motor deficit. No sensory deficit. Moving all extermities. No slurred speech MDM - Chest Pain MDM Narrative Medical decision making narrative: test was negative. No evidence for ectopic . Patient has epigastric pain. Lipase is normal no evidence for pancreatitis. CT scan of the abdomen pelvis showed no evidence of obstruction, abscess, perforation. No evidence for diverticulitis. No appendicitis. Patient is fair appearing. Flu RSV COVID were negative. UA showed no evidence for infection. Question gastritis. Will have patient increase dose of PPI. Follow up on an outpatient basis. In stable condition. Patient's EKG showed a sinus pattern heart rate is 50 p.r. p.r.n. QT within normal limits there is no acute ST segment elevation noted. Medical Records Data Attestation: I reviewed the patient's medical records. Lab Data Attestation: I reviewed the patient's lab results. Result diagrams: 11/27/21 21:28 11/27/21 21:28 Labs: Lab Results 11/27/21 11/27/21 11/27/21 Range/Units 21:28 21:28 21:28 WBC 10.5 (4.8-10.8) X10*3/uL RBC 4.54 (4.20-5.50) X10*6/uL Hgb 13.4 (12.0-16.0) g/dl Hct 39.5 (37.0-47.0) % MCV 87.0 (80.0-98.0) fL MCH 29.5 (27.0-33.0) pg MCHC 33.9 (31.0-35.0) g/dl RDW 12.6 (11.0-16.0) % Plt Count 276 (160-400) X10*3/uL MPV 8.6 L (9.4-12.3) fL Immature Gran % (Auto) 0.3 (0.0-0.4) % Neut % (Auto) 54.0 (45-73) % Lymph % (Auto) 38.7 (20-40) % [place] % (Auto) 5.7 (2-11) % Eos % (Auto) 1.2 (0-4) % Baso % (Auto) 0.1 (0-2) % Lymph # (Auto) 4.1 (1.2-4.9) X10*3/uL [place] # (Auto) 0.6 (0.1-1.2) X10*3/uL Eos # (Auto) 0.1 (0.0-0.4) X10*3/uL Baso # (Auto) 0.0 (0.0-0.2) X10*3/uL Abs Immat Gran (auto) 0.03 (0.00-0.03) X10*3/uL Absolute Neuts (auto) 5.7 (2.0-8.3) x10*3/uL Absolute Nucleated RBC 0.000 (0.0-0.012) X10*3/uL Nucleated RBC % (auto) 0.0 (0.0-0.2) /100WBC Sodium 139 (135-145) mmol/L Potassium 4.0 (3.3-5.1) mmol/L Chloride 110 H (96-108) mmol/L Carbon Dioxide 21 L (22-29) mmol/L Anion Gap 12 (12-20) BUN 14 (9-16) mg/dL Creatinine 0.90 (0.5-1.4) mg/dL Estim Creat Clear Calc 91.5 Estimated GFR > 60 Random Glucose 90 (60-115) mg/dL Calcium 9.3 (8.4-10.2) mg/dL Total Bilirubin 0.3 (0.0-1.0) mg/dL Direct Bilirubin < 0.2 (0.0-0.5) mg/dL AST 15 (5-31) U/L ALT 16 (0-31) U/L Alkaline Phosphatase 113 (39-117) U/L Troponin I High Sens < 3.5 (<3.5-17.0) ng/L Total Protein 7.3 (6.5-8.0) g/dL Albumin 4.5 (3.5-5.0) g/dL Lipase 43 (8-78) U/L Beta HCG, Quant < 2 mIU/mL Urine Color Urine Appearance Urine pH (5.0-8.0) Ur Specific [place] (1.005-1.025) Urine Protein (NEG-TRACE) MG/DL Urine Glucose (UA) (NEG) MG/DL Urine Ketones (NEG) MG/DL Urine Blood (NEG) Urine Nitrite (NEG) Ur Leukocyte Esterase (NEG) Urine RBC (0) /HPF Urine WBC (0-4) /HPF Ur Squamous Epith Cells /LPF Urine Bacteria /LPF COVID-19 (MARITZA) (Negative) COVID-19 Clin Com Influenza Type A (BIANCA) (Negative) Influenza Type B (BIANCA) (Negative) Influenza A & B Note 11/27/21 11/27/21 11/28/21 Range/Units 21:28 21:28 01:38 WBC (4.8-10.8) X10*3/uL RBC (4.20-5.50) X10*6/uL Hgb (12.0-16.0) g/dl Hct (37.0-47.0) % MCV (80.0-98.0) fL MCH (27.0-33.0) pg MCHC (31.0-35.0) g/dl RDW (11.0-16.0) % Plt Count (160-400) X10*3/uL MPV (9.4-12.3) fL Immature Gran % (Auto) (0.0-0.4) % Neut % (Auto) (45-73) % Lymph % (Auto) (20-40) % [place] % (Auto) (2-11) % Eos % (Auto) (0-4) % Baso % (Auto) (0-2) % Lymph # (Auto) (1.2-4.9) X10*3/uL [place] # (Auto) (0.1-1.2) X10*3/uL Eos # (Auto) (0.0-0.4) X10*3/uL Baso # (Auto) (0.0-0.2) X10*3/uL Abs Immat Gran (auto) (0.00-0.03) X10*3/uL Absolute Neuts (auto) (2.0-8.3) x10*3/uL Absolute Nucleated RBC (0.0-0.012) X10*3/uL Nucleated RBC % (auto) (0.0-0.2) /100WBC Sodium (135-145) mmol/L Potassium (3.3-5.1) mmol/L Chloride (96-108) mmol/L Carbon Dioxide (22-29) mmol/L Anion Gap (12-20) BUN (9-16) mg/dL Creatinine (0.5-1.4) mg/dL Estim Creat Clear Calc Estimated GFR Random Glucose (60-115) mg/dL Calcium (8.4-10.2) mg/dL Total Bilirubin (0.0-1.0) mg/dL Direct Bilirubin (0.0-0.5) mg/dL AST (5-31) U/L ALT (0-31) U/L Alkaline Phosphatase (39-117) U/L Troponin I High Sens (<3.5-17.0) ng/L Total Protein (6.5-8.0) g/dL Albumin (3.5-5.0) g/dL Lipase (8-78) U/L Beta HCG, Quant mIU/mL Urine Color YELLOW Urine Appearance CLEAR Urine pH 7.0 (5.0-8.0) Ur Specific [place] 1.010 (1.005-1.025) Urine Protein NEG (NEG-TRACE) MG/DL Urine Glucose (UA) NEG (NEG) MG/DL Urine Ketones NEG (NEG) MG/DL Urine Blood NEG (NEG) Urine Nitrite NEG (NEG) Ur Leukocyte Esterase NEG (NEG) Urine RBC 0-2 (0) /HPF Urine WBC 0-2 (0-4) /HPF Ur Squamous Epith Cells 1+ /LPF Urine Bacteria 1+ /LPF COVID-19 (MARITZA) Negative (Negative) COVID-19 Clin Com See Note Influenza Type A (BIANCA) Negative (Negative) Influenza Type B (BIANCA) Negative (Negative) Influenza A & B Note See Note Discharge Plan Discharge Clinical Impression: Gastritis Patient Disposition: Home, Self-Care Instructions: Gastritis (ED) Prescriptions: No Action lorazepam [Ativan] 0.5 mg tablet 0.5 mg PO TID PRN (Reason: anxiety) Qty: 7 0RF Rx Instructions: This medication may cause drowsiness use with caution, no driving for 6 hours after taking ibuprofen 600 mg tablet 600 mg PO Q6H PRN (Reason: fever or pain) Qty: 20 0RF acetaminophen 500 mg tablet 1,000 mg PO QID PRN (Reason: fever or pain) Qty: 20 0RF lorazepam [Ativan] 0.5 mg tablet 0.5 mg PO TID PRN (Reason: anxiety) Qty: 7 0RF ibuprofen 600 mg tablet 600 mg PO Q6H PRN (Reason: pain) Qty: 20 0RF prednisone 20 mg tablet 40 mg PO DAILY 5 Days Qty: 10 0RF doxycycline monohydrate 100 mg capsule 100 mg PO BID Qty: 14 0RF lorazepam [Ativan] 0.5 mg tablet 0.5 mg PO TID PRN (Reason: anxiety) Qty: 14 0RF Rx Instructions: This medication may cause drowsiness no driving for 6 hours after taking ibuprofen 400 mg tablet 400 mg PO Q6H PRN (Reason: pain) Qty: 20 0RF Referrals: Miladys Stroud PA [Primary Care Provider] - Aidan Kaufman [Physician] -
[2021-11-27] MEDS: Magnesium Hydrox/Alum Hydrox 30 ML ORAL.SUSP PO (23:39)
[2021-11-27 23:47] LABS: Alanine Aminotransferase 16 U/L (0-31); Albumin Level 4.5 g/dL (3.5-5.0); Alkaline Phosphatase 113 U/L (39-117); Aspartate Amino Transferase 15 U/L (5-31); Bilirubin Direct < 0.2 mg/dL (0.0-0.5); Bilirubin Total 0.3 mg/dL (0.0-1.0); Lipase 43 U/L (8-78); Total Protein 7.3 g/dL (6.5-8.0)
[2021-11-27 23:54] LABS: HCG Quantitative < 2 mIU/mL
[2021-11-28 01:13] VITALS: BP 108/67; PULSE 49; RESP 19; O2SAT 100
[2021-11-28 01:49] LABS: Appearance Urine CLEAR; Color Urine YELLOW; Glucose Urine UA NEG (NEG); Leukocyte Esterase Urine NEG (NEG); Nitrite Urine NEG (NEG); Urine Blood NEG (NEG); Urine Ketones NEG (NEG); Urine Protein NEG (NEG-TRACE)
[2021-11-28 02:03] LABS: Bacteria Urine 1+ /LPF; RBC Urine 0-2 /HPF (0); Squamous Epithelial Cell Urine 1+ /LPF; WBC Urine 0-2 /HPF (0-4)
== END 2021-11-28 02:20 | disposition home or self-care (01) ==
PROVIDERS: Emergency Provider Emergency Medicine Emergency Medical Services; PCP Physician Assistant Medical
DX: K29.70 Gastritis, unspecified, without bleeding (principal); J45.909 Unspecified asthma, uncomplicated; Z90.49 Acquired absence of other specified parts of digestive tract; Z20.822 Contact with and (suspected) exposure to COVID-19
CPT/HCPCS: 36415; 71045; 74177; 80048; 80076; 81001; 83690; 84484; 84702; 85025; 87502; 87635; 93005; 99284; 99285; Q9967

== ENCOUNTER 2021-11-28 13:59 | Emergency (ER) | payer OTHER, SELFPAY ==
[2021-11-28 14:05] VITALS: BP 108/60; BP 180/90; PULSE 56; PULSE 80; RESP 18; TEMP 36.8; O2SAT 100; O2SAT 99; BMI 32.8
--- NOTE | 2021-11-28 16:49 | ED.ABDPAIN ---
HPI - Abdominal Pain General Chief Complaint: Abdominal Pain Stated Complaint: ABD PAIN Time Seen by Provider: 11/28/21 16:48 Source: patient Mode of arrival: ambulatory Limitations: no limitations History of Present Illness HPI narrative: Patient with history of chronic abdominal pain for last few years had endoscopy done told gastritis about 5 years ago history of anxiety taking lorazepam had multiple CT scans was seen here last night and discharged in morning had a CT scan which was negative labs were stable comes here with pain in the epigastric area with slight nausea no vomiting no diarrhea no fever or chills patient denies any anxiety Related Data Previous Rx's Medication Instructions Recorded acetaminophen 500 mg tablet 1,000 mg PO QID PRN fever or pain 04/28/21 #20 tabs ibuprofen 600 mg tablet 600 mg PO Q6H PRN fever or pain 04/28/21 #20 tabs ibuprofen 600 mg tablet 600 mg PO Q6H PRN pain #20 tabs 04/28/21 lorazepam 0.5 mg tablet (Ativan) 0.5 mg PO TID PRN anxiety #7 tabs 04/28/21 lorazepam 0.5 mg tablet (Ativan) 0.5 mg PO TID PRN anxiety #7 tabs 04/28/21 lorazepam 0.5 mg tablet (Ativan) 0.5 mg PO TID PRN anxiety #14 tabs 07/24/21 doxycycline monohydrate 100 mg 100 mg PO BID #14 caps 08/01/21 capsule prednisone 20 mg tablet 40 mg PO DAILY 5 days #10 tabs 08/01/21 ibuprofen 400 mg tablet 400 mg PO Q6H PRN pain #20 tabs 10/10/21 dicyclomine 20 mg tablet 20 mg PO QID PRN abdominal pain 11/28/21 #20 tabs Allergies Allergy/AdvReac Type Severity Reaction Status Date / Time haloperidol [From Haldol] Allergy Agitated Verified 06/07/21 16:29 metoclopramide [From Reglan] Allergy Agitated Verified 06/07/21 16:29 Review of Systems Review of Systems Yes all other systems are reviewed and are negative PMFSH Past Medical History Medical History Anemia Anxiety Asthma COVID-19 Gastritis SVT (supraventricular tachycardia) Surgical History Hx of cholecystectomy Social History Social History Patient Tobacco Use Status: Current everyday Tobacco user e-Cigarette/Vaping Use: Currently Using Use of substances other than those prescribed or required for medical reasons: No Substance Use Type: Crack/Cocaine, Former Substance User and Heroin Advance Directives: No Advance Directives Information Provided: No Patient : No Physical Exam ED Vital Signs: Vital Signs - 24 hr 11/28/21 14:05 11/28/21 17:01 Temperature 98.3 F 98.1 F Pulse Rate 56 50 Respiratory Rate 18 18 Blood Pressure 108/60 99/58 L Pulse Oximetry 100 94 Oxygen Delivery Method Room Air Room Air BMI result Body Mass Index 32.8 Appearance: Alert. Oriented X3. No acute distress. Eyes: No pallor icterus ENT: Pharynx normal. Oral Mucosa moist Neck: Normal inspection. Neck supple. CVS: Normal heart rate and rhythm. Pulses normal. Respiratory: No respiratory distress. Equal air entry bilateral, no wheezing/rales/rhonchi Abdomen: Soft mild epigastric tenderness no guarding or rebound tenderness Bowel sounds are present, no mass palpable, no CVA tenderness Skin: Skin warm and dry. Normal skin color. Normal skin turgor. Extremities: No lower extremity edema. No calf tenderness Neuro: Oriented X 3. No motor deficit. MDM - Abdominal Pain MDM Narrative Medical decision making narrative: Patient with chronic abdominal pain with anxiety disorder patient was just here 8 hours ago workup was negative clinically patient does have gastritis questionable IBS will discharge patient on Bentyl advised to continue Protonix Medical Records Attestation: I reviewed the patient's medical records. Lab Data Attestation: I reviewed the patient's lab results. Discharge Plan Discharge Clinical Impression: Irritable bowel syndrome Patient Disposition: Home, Self-Care Instructions: Irritable Bowel Syndrome (ED) Additional Instructions: Drink plenty of fluids Medication as advised for abdominal pain Continue your acid medication follow-up with your PCP Prescriptions: New dicyclomine 20 mg tablet 20 mg PO QID PRN (Reason: abdominal pain) Qty: 20 0RF No Action lorazepam [Ativan] 0.5 mg tablet 0.5 mg PO TID PRN (Reason: anxiety) Qty: 7 0RF Rx Instructions: This medication may cause drowsiness use with caution, no driving for 6 hours after taking ibuprofen 600 mg tablet 600 mg PO Q6H PRN (Reason: fever or pain) Qty: 20 0RF acetaminophen 500 mg tablet 1,000 mg PO QID PRN (Reason: fever or pain) Qty: 20 0RF lorazepam [Ativan] 0.5 mg tablet 0.5 mg PO TID PRN (Reason: anxiety) Qty: 7 0RF ibuprofen 600 mg tablet 600 mg PO Q6H PRN (Reason: pain) Qty: 20 0RF prednisone 20 mg tablet 40 mg PO DAILY 5 Days Qty: 10 0RF doxycycline monohydrate 100 mg capsule 100 mg PO BID Qty: 14 0RF lorazepam [Ativan] 0.5 mg tablet 0.5 mg PO TID PRN (Reason: anxiety) Qty: 14 0RF Rx Instructions: This medication may cause drowsiness no driving for 6 hours after taking ibuprofen 400 mg tablet 400 mg PO Q6H PRN (Reason: pain) Qty: 20 0RF
[2021-11-28 17:01] VITALS: BP 99/58; PULSE 50; RESP 18; TEMP 36.7; O2SAT 94
[2021-11-28] MEDS: Magnesium Hydrox/Alum Hydrox 30 ML ORAL.SUSP PO (17:38)
[2021-11-28] MEDS: Lidocaine HCl Viscous 2 % 15 ML SOLUTION MUCOUS MEM (17:38)
[2021-11-28] MEDS: Dicyclomine HCl 10 MG CAPSULE 20 MG PO (17:38)
== END 2021-11-28 19:06 | disposition home or self-care (01) ==
PROVIDERS: Emergency Provider Internal Medicine; PCP Physician Assistant Medical
DX: K58.9 Irritable bowel syndrome, unspecified (principal); J45.909 Unspecified asthma, uncomplicated
CPT/HCPCS: 99283; 99284